=== PATIENT | male | born 1945 | race Caucasian/White ===

== ENCOUNTER 2017-06-28 14:12 | Emergency (ER) | payer MEDICARE ==
[~2017-06-28 14:12] MED LIST: ALBUTERAL SULFATE IH; ASPI-1181 PO; ATOR10TA69 PO; CETI10TA57 PO; CITA40TA6 PO; CLOP75TA14 PO; COD30 PO; CYAN100010 PO; FLUT16H NASAL; FLUT1DIS3 IH; GLIP10TA9 PO; HC2530O RC; METF10004 PO; METO-408 PO; PANT40TA25 PO; POLY17PO3 PO; PREG75 PO; PSYL0.4C PO; TAMS0.4C32 PO; TERB30CR22 TP; TRIA15OI6 TP
[2017-06-28 15:15] LABS: BASOPHILS % (AUTO) 0.3 % (0.0-5.0); EOSINOPHILS % (AUTO) 0.5 % (0.0-8.0); HEMATOCRIT 42.5 % (42-54); MEAN CORPUSCULAR HEMOGLOBIN 33.4 pg (27.0-33.0); MEAN CORPUSCULAR HGB CONC 35.9 g/dL (32.0-36.0); MONOCYTES % (AUTO) 6.1 % (3.0-13.0); NEUTROPHILS % (AUTO) 72.1 % (40.0-77.0); NUCLEATED RED BLOOD CELLS 0.1 % (0.0-0.19); PLATELET COUNT (AUTO) 101 K/uL (130-400); RED BLOOD CELL COUNT(AUTO) 4.57 MIL/uL (4.50-6.20); RED CELL DISTRIBUTION WIDTH 13.7 % (11.0-15.5); WHITE BLOOD COUNT (AUTO) 7.6 K/uL (4.8-10.8)
[2017-06-28 15:33] LABS: APPEARANCE,URINE Clear (CLEAR); BILIRUBIN,URINE Negative (NEGATIVE); COLOR,URINE Yellow (YELLOW); GLUCOSE, URINE (UA) >=1000 mg/dL (NEGATIVE); KETONES,URINE Negative (NEGATIVE); LEUKOCYTE ESTERASE ,URINE Negative (NEGATIVE); NITRATE,URINE Negative (NEGATIVE); OCCULT BLOOD,URINE Nonhemolyzed Trace (NEGATIVE); PH,URINE 5.5 (5.0-8.0); PROTEIN,URINE Negative (NEGATIVE); UROBILINOGEN,URINE 0.2 mg/dL (0.2-1.0)
[2017-06-28 15:41] LABS: CREATININE 1.3 mg/dL (0.5-1.5); POTASSIUM 4.4 mmol/L (3.5-5.1)
[2017-06-28 15:45] LABS: ALBUMIN 3.4 g/dL (3.5-5.0); BILIRUBIN,TOTAL 0.6 mg/dL (0.2-1.0); TOTAL PROTEIN, SERUM 6.7 g/dL (6.0-8.3)
[2017-06-28 15:55] LABS: BACTERIA,URINE None Seen /HPF (None Seen); RBC,URINE 0-1 /HPF (0-1); SQUAMOUS EPITHELIAL CELL,UR None Seen /LPF (0-2); WBC,URINE None Seen /HPF (0-1)
[2017-06-28] MEDS ORDERED: SODIUM CHLORIDE 0.9% 500ML 500 ML IV ONE (17:19)
[2017-06-28] MEDS ORDERED: INSULIN HUMULIN R 100 UNIT/ML 3ML ONE (17:20)
== END 2017-06-28 17:55 | disposition home or self-care (01) ==
LOC: EDH 14:12
DX: E11.65 Type 2 diabetes mellitus with hyperglycemia (principal); E78.5 Hyperlipidemia, unspecified; I10 Essential (primary) hypertension; I25.10 Atherosclerotic heart disease of native coronary artery without angina pectoris; Z95.1 Presence of aortocoronary bypass graft; Z88.6 Allergy status to analgesic agent
CPT/HCPCS: 36415; 80053; 81001; 82550; 84484; 85025; 93005; 96374; 99285; J1815; J7040

== ENCOUNTER 2018-10-11 05:45 | Day surgery (SDC) | payer OTHER ==
[2018-10-11] VITALS (9 sets, daily range): BP systolic 78–140; BP diastolic 47–81
[~2018-10-11] VITALS: Ht 182.9 cm; Wt 114.3 kg
[~2018-10-11 05:45] MED LIST changes: +ALBU0.63 IH; +BUDE8.435 NS; -CETI10TA57 PO; -CLOP75TA14 PO; +DULA1.5P SQ; -FLUT16H NASAL; -FLUT1DIS3 IH; +GLUC100019 PO; -HC2530O RC; +IPRA42SP NS; +LATA7.5D OU; +LORA10TA45 PO; +MELA1TAB21 PO; +METF-446 PO; -METF10004 PO; +MULT1CAP32 PO; -POLY17PO3 PO; +PROCTOCM PR; -PSYL0.4C PO; -TAMS0.4C32 PO; -TERB30CR22 TP; -TRIA15OI6 TP; +[UNRECOGNIZED DRUG - OTHER] PO
[2018-10-11] MEDS ORDERED: SODIUM CHLORIDE 0.9% 1000ML 1,000 ML IV ONE (05:52)
[2018-10-11] MEDS ORDERED: OMEG-116 PO (07:02)
[2018-10-11] MEDS ORDERED: PHENYLEPHRINE HCL 10 MG/ML 1ML VIAL IV ONE (07:50)
[2018-10-11] MEDS ORDERED: SODIUM CHLORIDE 0.9% 10 ML VIAL ONE (07:50)
[2018-10-11] MEDS ORDERED: PROPOFOL 10 MG/ML 20ML VIAL IV ONE (07:53)
== END 2018-10-11 08:50 | disposition home or self-care (01) ==
LOC: DAH 05:45
PROVIDERS: ATTEND Internal Medicine
DX: Z12.11 Encounter for screening for malignant neoplasm of colon (principal); K63.5 Polyp of colon; K29.50 Unspecified chronic gastritis without bleeding; K31.9 Disease of stomach and duodenum, unspecified; Z86.010 Personal history of colon polyps; E11.9 Type 2 diabetes mellitus without complications; I10 Essential (primary) hypertension; E78.5 Hyperlipidemia, unspecified; I25.10 Atherosclerotic heart disease of native coronary artery without angina pectoris; J45.909 Unspecified asthma, uncomplicated; I21.3 ST elevation (STEMI) myocardial infarction of unspecified site; M19.90 Unspecified osteoarthritis, unspecified site; Z95.1 Presence of aortocoronary bypass graft; Z98.890 Other specified postprocedural states; Z79.899 Other long term (current) drug therapy; Z79.84 Long term (current) use of oral hypoglycemic drugs; Z68.32 Body mass index [BMI] 32.0-32.9, adult; Z85.828 Personal history of other malignant neoplasm of skin; K64.0 First degree hemorrhoids; K57.30 Diverticulosis of large intestine without perforation or abscess without bleeding
CPT/HCPCS: 36415; 43239; 45380; 82784; 82948 ×2; 83516 ×4; 86140; 93005; A4606; J2370; J2704; J7030

== ENCOUNTER → 2020-01-23 | Outpatient (CLI) | payer OTHER ==
[~2020-01-23] MED LIST changes: -ASPI-1181 PO; +ASPI-1443 PO; +OMEG-116 PO
== END | disposition home or self-care (01) ==
LOC: SHCH 10:00
PROVIDERS: ATTEND Internal Medicine Cardiovascular Disease
DX: R01.1 Cardiac murmur, unspecified (principal); R09.89 Other specified symptoms and signs involving the circulatory and respiratory systems
CPT/HCPCS: 93306; 93880

== ENCOUNTER 2020-03-11 16:25 | Emergency (ER) | payer OTHER, MEDICARE ==
[~2020-03-11 16:25] MED LIST changes: -PANT40TA25 PO; +PANT40TA54 PO
[2020-03-11] MEDS ORDERED: ONDANSETRON HCL 4 MG/2 ML VIAL ONE (17:08)
[2020-03-11] MEDS ORDERED: MORPHINE SULFATE 2 MG/ML 1ML SYG ONE (17:09)
[2020-03-11] MEDS ORDERED: LIDOCAINE 5% TOPICAL PATCH TP ONE (18:42)
== END 2020-03-11 21:35 | disposition home or self-care (01) ==
LOC: EDH 16:25
DX: S42.214A Unspecified nondisplaced fracture of surgical neck of right humerus, initial encounter for closed fracture (principal); M25.562 Pain in left knee; M25.561 Pain in right knee; I25.10 Atherosclerotic heart disease of native coronary artery without angina pectoris; E11.9 Type 2 diabetes mellitus without complications; E78.5 Hyperlipidemia, unspecified; I10 Essential (primary) hypertension; Z87.891 Personal history of nicotine dependence; Z88.5 Allergy status to narcotic agent; Z88.6 Allergy status to analgesic agent; W18.39XA Other fall on same level, initial encounter; Y93.01 Activity, walking, marching and hiking; Y92.89 Other specified places as the place of occurrence of the external cause; Y99.8 Other external cause status
CPT/HCPCS: 29105; 70450; 72125; 72170; 73060; 73090; 73562 ×2; 96374; 96375; 99285; J2405; 29505

== ENCOUNTER 2020-06-02 21:05 | Inpatient (IN) | payer MEDICARE, OTHER ==
[~2020-06-02] VITALS: Ht 188 cm; Wt 99.4 kg
[~2020-06-02 21:05] MED LIST changes: +CITA-108 PO; -CITA40TA6 PO
[2020-06-02] MEDS ORDERED: ONDANSETRON 4MG INJ ONE (21:39)
[2020-06-02] MEDS ORDERED: HYDROCODONE/ACETAMINOPHEN 10/325 MG TAB ONE (21:40)
[2020-06-02 21:45] LABS: BASOPHILS % (AUTO) 0.2 % (0.0-5.0); EOSINOPHILS % (AUTO) 0.8 % (0.0-8.0); HEMATOCRIT 39.2 % (42-54); MEAN CORPUSCULAR HEMOGLOBIN 29.7 pg (27.0-33.0); MEAN CORPUSCULAR HGB CONC 34.7 g/dL (32.0-36.0); MEAN CORPUSCULAR VOLUME 85.6 fL (79-99); MONOCYTES % (AUTO) 8.8 % (3.0-13.0); NEUTROPHILS % (AUTO) 58.7 % (40.0-77.0); PLATELET COUNT (AUTO) 73 K/uL (130-400); RED BLOOD CELL COUNT(AUTO) 4.58 MIL/uL (4.50-6.20); WHITE BLOOD COUNT (AUTO) 6.3 K/uL (4.8-10.8)
[2020-06-02 21:54] LABS: INR 0.98 (0.85-1.15); PROTHROMBIN TIME 10.5 SEC (9.6-11.6)
[2020-06-02 21:55] LABS: PARTIAL THROMBOPLASTIN TIME 24.5 SEC (26.3-35.5)
[2020-06-02 22:04] LABS: B-TYPE NATRIURETIC PEPTIDE 14 pg/mL (0-100)
[2020-06-02 22:05] LABS: CREATININE 1.5 mg/dL (0.5-1.5)
[2020-06-02 22:09] LABS: ALBUMIN 3.8 g/dL (3.5-5.0); BILIRUBIN,TOTAL 0.3 mg/dL (0.2-1.0); TOTAL PROTEIN, SERUM 6.7 g/dL (6.0-8.3)
[2020-06-02 23:07] LABS: APPEARANCE,URINE Clear (CLEAR); BILIRUBIN,URINE Negative (NEGATIVE); COLOR,URINE Yellow (YELLOW); GLUCOSE, URINE (UA) Negative (NEGATIVE); KETONES,URINE Negative (NEGATIVE); LEUKOCYTE ESTERASE ,URINE Negative (NEGATIVE); NITRATE,URINE Negative (NEGATIVE); OCCULT BLOOD,URINE Negative (NEGATIVE); PROTEIN,URINE Negative (NEGATIVE); UROBILINOGEN,URINE 0.2 mg/dL (0.2-1.0)
[2020-06-02] MEDS ORDERED: LACTULOSE 20 GM/30 ML UDCUP PO PRN (23:15)
[2020-06-02] MEDS ORDERED: ONDANSETRON 4MG INJ IV PRN (23:15)
[2020-06-02] MEDS ORDERED: KETOROLAC 15MG/ML VIAL (15MG/ML) IV PRN (23:15)
[2020-06-02] MEDS ORDERED: ACETAMINOPHEN 325 MG TAB PO PRN ×2 (23:15)
[2020-06-03] MEDS ORDERED: KETOROLAC 15MG/ML VIAL (15MG/ML) ONE (05:52)
[2020-06-03 06:47] LABS: BASOPHILS % (AUTO) 0.2 % (0.0-5.0); EOSINOPHILS % (AUTO) 1.2 % (0.0-8.0); HEMATOCRIT 37.9 % (42-54); LYMPHOCYTES % (AUTO) 34.5 % (21.0-51.0); MEAN CORPUSCULAR HEMOGLOBIN 29.4 pg (27.0-33.0); MEAN CORPUSCULAR HGB CONC 34.3 g/dL (32.0-36.0); MEAN CORPUSCULAR VOLUME 85.7 fL (79-99); MONOCYTES % (AUTO) 10.4 % (3.0-13.0); NEUTROPHILS % (AUTO) 53.4 % (40.0-77.0); PLATELET COUNT (AUTO) 69 K/uL (130-400); RED BLOOD CELL COUNT(AUTO) 4.42 MIL/uL (4.50-6.20); RED CELL DISTRIBUTION WIDTH 13.8 % (11.0-15.5); WHITE BLOOD COUNT (AUTO) 5.8 K/uL (4.8-10.8)
[2020-06-03 07:03] LABS: CREATININE 1.3 mg/dL (0.5-1.5)
[2020-06-03] MEDS: INSULIN HUMULIN R 100 UNIT/ML 3ML SQ SCH ×4 (07:30→21:00)
[2020-06-03] MEDS ORDERED: FAMOTIDINE 20MG TAB ONE (08:25)
[2020-06-03] MEDS: FAMOTIDINE 20MG TAB PO SCH ×2 (09:00→21:15)
[2020-06-03] MEDS ORDERED: COMPOUND IV REFRIGERATED 1 EACH IVSOLN MISC PRN (16:15)
[2020-06-03 17:06] VITALS: BP_SYST 103; BP_SYST 152; BP_DIAS 66; BP_DIAS 79
[2020-06-03] MEDS ORDERED: KETOROLAC 30MG VIAL (30MG/ML) ONE (17:39)
[2020-06-03] MEDS ORDERED: ASPI-1026 PO (18:31)
[2020-06-03] MEDS ORDERED: AZEL23SP NS (18:31)
[2020-06-03] MEDS ORDERED: CETI-89 PO (18:31)
[2020-06-03] MEDS ORDERED: ATOR10 PO (18:31)
[2020-06-03 20:12] VITALS: BP 141/81
[2020-06-04] VITALS (15 sets, daily range): BP systolic 99–160; BP diastolic 52–90
[2020-06-04] MEDS: INSULIN HUMULIN R 100 UNIT/ML 3ML SQ SCH ×4 (05:58→21:25)
[2020-06-04] MEDS ORDERED: MEPERIDINE-PF 25 MG/ML SYG ONE ×2 (08:45→10:00)
[2020-06-04] MEDS ORDERED: LIDOCAINE HCL 1% 20 ML VIAL ONE (08:45)
[2020-06-04] MEDS ORDERED: MIDAZOLAM HCL 1 MG/ML 2ML VIAL ONE ×2 (08:46→10:00)
[2020-06-04] MEDS: ASPIRIN 81MG CHEW TAB PO SCH (09:00)
[2020-06-04] MEDS ORDERED: CLOPIDOGREL 75MG TAB PO SCH (09:00)
[2020-06-04 09:29] LABS: CREATININE 1.3 mg/dL (0.5-1.5); MAGNESIUM 1.4 mg/dL (1.80-2.40); POTASSIUM 4.7 mmol/L (3.5-5.1)
[2020-06-04] MEDS ORDERED: LIDOCAINE HCL 1% MDV 50ML VIAL ONE (10:02)
[2020-06-04] MEDS ORDERED: BUPIVACAINE/PF 0.25% 50ML VIAL IJ ONE (10:03)
[2020-06-04] MEDS ORDERED: NON-FORMULARY MEDICATION 1 EACH (Albuterol Sulfate 0.63 MG) IH SCH (14:00)
[2020-06-04] MEDS: FAMOTIDINE 20MG TAB PO SCH ×2 (14:27→21:21)
[2020-06-04] MEDS: ATORVASTATIN 20 MG TABLET PO SCH (14:27)
[2020-06-04] MEDS: ACETAMINOPHEN WITH CODEINE 1 TAB TAB PO PRN (14:35)
[2020-06-04] MEDS ORDERED: **HM**MELATONIN 10MG PO SCH (21:00)
[2020-06-04] MEDS ORDERED: LATANOPROST 2.5 ML DROPS OU SCH (21:00)
[2020-06-04] MEDS: PANTOPRAZOLE 40 MG TAB DR PO SCH (21:21)
[2020-06-04] MEDS: IPRATROPIUM BROMIDE NASAL SCH (21:22)
[2020-06-05] MEDS: ACETAMINOPHEN WITH CODEINE 1 TAB TAB PO PRN (01:51)
[2020-06-05 03:40] VITALS: BP_SYST 162; BP_SYST 89; BP_DIAS 53; BP_DIAS 80
[2020-06-05 04:34] VITALS: BP 155/93
[2020-06-05 04:35] VITALS: BP 174/97
[2020-06-05 04:38] LABS: BASOPHILS % (AUTO) 0.2 % (0.0-5.0); EOSINOPHILS % (AUTO) 1.2 % (0.0-8.0); HEMATOCRIT 36.9 % (42-54); LYMPHOCYTES % (AUTO) 33.3 % (21.0-51.0); MEAN CORPUSCULAR HEMOGLOBIN 28.9 pg (27.0-33.0); MEAN CORPUSCULAR HGB CONC 33.9 g/dL (32.0-36.0); MEAN CORPUSCULAR VOLUME 85.4 fL (79-99); MONOCYTES % (AUTO) 10.4 % (3.0-13.0); NEUTROPHILS % (AUTO) 54.4 % (40.0-77.0); PLATELET COUNT (AUTO) 58 K/uL (130-400); RED BLOOD CELL COUNT(AUTO) 4.32 MIL/uL (4.50-6.20); RED CELL DISTRIBUTION WIDTH 13.4 % (11.0-15.5); WHITE BLOOD COUNT (AUTO) 4.2 K/uL (4.8-10.8)
[2020-06-05 04:46] LABS: CREATININE 1.2 mg/dL (0.5-1.5); MAGNESIUM 1.4 mg/dL (1.80-2.40); POTASSIUM 4.6 mmol/L (3.5-5.1)
[2020-06-05] MEDS: INSULIN HUMULIN R 100 UNIT/ML 3ML SQ SCH ×2 (07:30→11:30)
[2020-06-05 07:56] VITALS: BP 157/74
[2020-06-05] MEDS ORDERED: MAGNESIUM 2GM PREMIX 50ML 50 ML IV PRN (08:30)
[2020-06-05] MEDS ORDERED: BUDESONIDE NASAL SCH (09:00)
[2020-06-05] MEDS: IPRATROPIUM BROMIDE NASAL SCH (09:00)
[2020-06-05] MEDS: FAMOTIDINE 20MG TAB PO SCH (09:40)
[2020-06-05] MEDS: PANTOPRAZOLE 40 MG TAB DR PO SCH (09:40)
[2020-06-05] MEDS: ASPIRIN 81MG CHEW TAB PO SCH (09:40)
[2020-06-05] MEDS: ATORVASTATIN 20 MG TABLET PO SCH (09:40)
[2020-06-05 11:32] VITALS: BP 163/89
[2020-06-05] MEDS ORDERED: PHARMACY COMMUNICATION MISC SCH (14:30)
[2020-08-12] MEDS ORDERED: METO25TA6 PO (14:35)
[2020-08-12] MEDS ORDERED: Glipizide PO (14:35)
[2020-08-12] MEDS ORDERED: NITR0.4T50 SL (14:35)
== END 2020-06-05 17:45 | disposition home or self-care (01) | DRG 274 ==
LOC: EDH 21:05 → EDHIP 23:04 → OBSVTOIN 23:04 → 3CH 06-03 14:58
PROVIDERS: ADMIT Family Medicine; ATTEND Family Medicine
PROC: 4A023FZ Measurement of Cardiac Rhythm, Percutaneous Approach (ICD-10-PCS; principal; 2020-06-04)
PROC: 4A0234Z Measurement of Cardiac Electrical Activity, Percutaneous Approach (ICD-10-PCS; 2020-06-04)
PROC: 0JH602Z Insertion of Monitoring Device into Chest Subcutaneous Tissue and Fascia, Open Approach (ICD-10-PCS; 2020-06-04)
DX: I95.1 Orthostatic hypotension (principal); E87.2 Acidosis; I13.0 Hypertensive heart and chronic kidney disease with heart failure and stage 1 through stage 4 chronic kidney disease, or unspecified chronic kidney disease; I50.42 Chronic combined systolic (congestive) and diastolic (congestive) heart failure; Z20.828 Contact with and (suspected) exposure to other viral communicable diseases; Z88.8 Allergy status to other drugs, medicaments and biological substances; Z88.2 Allergy status to sulfonamides; I25.10 Atherosclerotic heart disease of native coronary artery without angina pectoris; Z95.1 Presence of aortocoronary bypass graft; D69.6 Thrombocytopenia, unspecified; Z95.5 Presence of coronary angioplasty implant and graft; Z82.49 Family history of ischemic heart disease and other diseases of the circulatory system; Z83.3 Family history of diabetes mellitus; M25.562 Pain in left knee; M25.511 Pain in right shoulder; N18.30 Chronic kidney disease, stage 3 unspecified; E11.22 Type 2 diabetes mellitus with diabetic chronic kidney disease; I25.2 Old myocardial infarction; J32.0 Chronic maxillary sinusitis; Z86.73 Personal history of transient ischemic attack (TIA), and cerebral infarction without residual deficits; E78.5 Hyperlipidemia, unspecified; E11.40 Type 2 diabetes mellitus with diabetic neuropathy, unspecified
CPT/HCPCS: 33285; 36415; 70450; 70486; 71045; 72125; 73030; 73562; 80048; 80053; 81003; 82550; 82948; 83605; 83735; 83880; 84484; 85025; 85610; 85730; 87426; 93005; 93620; 95816; 99156; 99157; 99291; C1730; C1894; G0378; J1644; J1815; J1885; J2175; J2250; J2405; J3490; U0003

== ENCOUNTER 2020-08-13 05:54 | Day surgery (SDC) | payer OTHER ==
[2020-08-12 11:56] LABS: BASOPHILS % (AUTO) 0.4 % (0.0-5.0); EOSINOPHILS % (AUTO) 2.8 % (0.0-8.0); HEMATOCRIT 41.3 % (42-54); LYMPHOCYTES % (AUTO) 31.5 % (21.0-51.0); MEAN CORPUSCULAR HEMOGLOBIN 29.9 pg (27.0-33.0); MEAN CORPUSCULAR HGB CONC 34.1 g/dL (32.0-36.0); MEAN CORPUSCULAR VOLUME 87.5 fL (79-99); MONOCYTES % (AUTO) 10.7 % (3.0-13.0); NEUTROPHILS % (AUTO) 54.2 % (40.0-77.0); PLATELET COUNT (AUTO) 108 K/uL (130-400); RED BLOOD CELL COUNT(AUTO) 4.72 MIL/uL (4.50-6.20); RED CELL DISTRIBUTION WIDTH 13.9 % (11.0-15.5)
[2020-08-12 12:01] LABS: CREATININE 1.3 mg/dL (0.5-1.5); POTASSIUM 4.3 mmol/L (3.5-5.1)
[2020-08-12 12:04] LABS: APPEARANCE,URINE Clear (CLEAR); BILIRUBIN,URINE Negative (NEGATIVE); COLOR,URINE Yellow (YELLOW); GLUCOSE, URINE (UA) Negative (NEGATIVE); KETONES,URINE Negative (NEGATIVE); LEUKOCYTE ESTERASE ,URINE Negative (NEGATIVE); NITRATE,URINE Negative (NEGATIVE); OCCULT BLOOD,URINE Negative (NEGATIVE); PROTEIN,URINE Negative (NEGATIVE); UROBILINOGEN,URINE 0.2 mg/dL (0.2-1.0)
[2020-08-12 12:17] LABS: INR 1.05 (0.85-1.15); PROTHROMBIN TIME 11.4 SEC (9.6-11.6)
[2020-08-12 12:18] LABS: PARTIAL THROMBOPLASTIN TIME 26.9 SEC (26.3-35.5)
[2020-08-12 13:48] VITALS: BP 128/77
[~2020-08-13] VITALS: Ht 182.9 cm; Wt 101.9 kg
[2020-08-13] VITALS (12 sets, daily range): BP systolic 107–149; BP diastolic 52–82
[~2020-08-13 05:54] MED LIST changes: +ASPI-1026 PO; -ASPI-1443 PO; +ATOR10 PO; -ATOR10TA69 PO; +AZEL23SP NS; +CETI-89 PO; -CITA-108 PO; +CITA40TA6 PO; -DULA1.5P SQ; -GLIP10TA9 PO; -GLUC100019 PO; +Glipizide PO; -LORA10TA45 PO; -MELA1TAB21 PO; -METO-408 PO; +METO25TA6 PO; +NITR0.4T50 SL; -OMEG-116 PO; -PROCTOCM PR; -[UNRECOGNIZED DRUG - OTHER] PO
[2020-08-13] MEDS ORDERED: SODIUM CHLORIDE 0.9% 1000ML 1,000 ML IV ONE (06:15)
[2020-08-13] MEDS ORDERED: MEPERIDINE-PF 25 MG/ML SYG ONE ×2 (07:30→08:07)
[2020-08-13] MEDS ORDERED: MIDAZOLAM HCL 1 MG/ML 2ML VIAL ONE ×2 (07:30→08:07)
[2020-08-13] MEDS ORDERED: IOHEXOL 350 MG/ML 100ML INFUS..BTL IV ONE ×2 (07:33→07:54)
[2020-08-13] MEDS ORDERED: SODIUM BICARB 50MEQ 50ML VIAL 50 ML ONE (07:33)
[2020-08-13] MEDS ORDERED: IOHEXOL-350 50ML VIAL IV ONE (07:33)
[2020-08-13] MEDS ORDERED: LIDOCAINE HCL 2% 20ML ONE (07:33)
[2020-08-13] MEDS ORDERED: HEPARIN SODIUM 1000UNIT/ML 10ML VIAL ONE (07:54)
[2020-08-13] MEDS ORDERED: SODIUM CHLORIDE 0.9% 1000ML 1,000 ML IV SCH ×2 (08:00→09:00)
[2020-08-13] MEDS ORDERED: CLOPIDOGREL BISULFATE 300 MG TAB ONE (08:51)
[2020-08-13] MEDS ORDERED: ASPIRIN 325MG EC TAB 325 MG TABLET.DR PO ONE (08:51)
[2020-08-13] MEDS ORDERED: ONDANSETRON HCL 4 MG/2 ML VIAL IVP PRN (09:00)
[2020-08-13] MEDS ORDERED: FAMOTIDINE/PF 20 MG/2 ML VIAL IV ONE (10:30)
== END 2020-08-13 15:00 | disposition home or self-care (01) ==
LOC: DAH 05:54
PROVIDERS: ATTEND Internal Medicine Cardiovascular Disease
DX: I25.119 Atherosclerotic heart disease of native coronary artery with unspecified angina pectoris (principal); I25.82 Chronic total occlusion of coronary artery; T82.855A Stenosis of coronary artery stent, initial encounter; I13.0 Hypertensive heart and chronic kidney disease with heart failure and stage 1 through stage 4 chronic kidney disease, or unspecified chronic kidney disease; E11.22 Type 2 diabetes mellitus with diabetic chronic kidney disease; I50.32 Chronic diastolic (congestive) heart failure; N18.30 Chronic kidney disease, stage 3 unspecified; E78.5 Hyperlipidemia, unspecified; D69.6 Thrombocytopenia, unspecified; I87.2 Venous insufficiency (chronic) (peripheral); I45.10 Unspecified right bundle-branch block; Z95.1 Presence of aortocoronary bypass graft; Z79.84 Long term (current) use of oral hypoglycemic drugs; Z79.899 Other long term (current) drug therapy; Z79.01 Long term (current) use of anticoagulants; Z79.82 Long term (current) use of aspirin; Z83.3 Family history of diabetes mellitus; Z82.49 Family history of ischemic heart disease and other diseases of the circulatory system; Z88.8 Allergy status to other drugs, medicaments and biological substances; Z88.1 Allergy status to other antibiotic agents; Y83.8 Other surgical procedures as the cause of abnormal reaction of the patient, or of later complication, without mention of misadventure at the time of the procedure
CPT/HCPCS: 36415; 71045; 80048; 81003; 82948; 85025; 85610; 85730; 92920; 93005; 93459; A4215; A4216; A4221; A4222; A4223 ×3; A4606; A4663; C1725; C1760; C1769 ×2; C1887 ×5; C1894; J1644 ×2; J2175 ×2; J2250 ×2; J3490 ×3; J7030; Q9965 ×2; Q9967 ×3; 96360; 96361; 99156; 99157

== ENCOUNTER → 2020-11-05 | Outpatient (CLI) | payer OTHER ==
[~2020-11-05] MED LIST changes: -ASPI-1026 PO
[2020-11-05 13:40] LABS: CREATININE 1.3 mg/dL (0.5-1.5); POTASSIUM 4.6 mmol/L (3.5-5.1)
== END | disposition home or self-care (01) ==
LOC: LAB 12:02
PROVIDERS: ATTEND Family Medicine
DX: H49.20 Sixth [abducent] nerve palsy, unspecified eye (principal)
CPT/HCPCS: 36415; 80048

== ENCOUNTER → 2020-11-06 | Outpatient (CLI) | payer OTHER ==
[~2020-11-06] MED LIST changes: +GADOTERATE MEGLUMINE 10 MMOL/20 ML VIAL IV ONE
== END | disposition home or self-care (01) ==
LOC: RAH 08:27
PROVIDERS: ATTEND Family Medicine
DX: H49.20 Sixth [abducent] nerve palsy, unspecified eye (principal); G31.89 Other specified degenerative diseases of nervous system
CPT/HCPCS: 70553; A9575

== ENCOUNTER 2021-07-11 06:07 | Day surgery (SDC) | payer OTHER ==
[2021-07-09 14:18] LABS: CREATININE 1.1 mg/dL (0.5-1.5); POTASSIUM 3.1 mmol/L (3.5-5.1)
[2021-07-09 14:21] LABS: INR 1.06 (0.85-1.15); PROTHROMBIN TIME 11.5 SEC (9.6-11.6)
[2021-07-09 14:22] LABS: PARTIAL THROMBOPLASTIN TIME 28.3 SEC (26.3-35.5)
[2021-07-09 16:26] LABS: BASOPHILS % (AUTO) 0.2 % (0.0-5.0); EOSINOPHILS % (AUTO) 1.4 % (0.0-8.0); HEMATOCRIT 34.1 % (42-54); LYMPHOCYTES % (AUTO) 25.1 % (21.0-51.0); MEAN CORPUSCULAR HEMOGLOBIN 26.7 pg (27.0-33.0); MEAN CORPUSCULAR HGB CONC 32.8 g/dL (32.0-36.0); MEAN CORPUSCULAR VOLUME 81.2 fL (79-99); MONOCYTES % (AUTO) 8.3 % (3.0-13.0); NEUTROPHILS % (AUTO) 64.1 % (40.0-77.0); PLATELET COUNT (AUTO) 96 K/uL (130-400); RED CELL DISTRIBUTION WIDTH 15.3 % (11.0-15.5); WHITE BLOOD COUNT (AUTO) 4.3 K/uL (4.8-10.8)
[2021-07-10 09:11] VITALS: BP 138/73
[2021-07-11] VITALS (11 sets, daily range): BP systolic 145–165; BP diastolic 71–94
[~2021-07-11] VITALS: Ht 182.9 cm; Wt 95.4 kg
[~2021-07-11 06:07] MED LIST changes: +0.9% NACL 500ML IV.SOLN 500 ML IV SCH; +AEC81 PO; -ALBU0.63 IH; -ALBUTERAL SULFATE IH; +BENZ-39 PO; +BIOT800T PO; -BUDE8.435 NS; -CETI-89 PO; +CITA-108 PO; -CITA40TA6 PO; +CLOP75TA32 PO; -COD30 PO; +COMPAZINE PO; -CYAN100010 PO; +FLUD0.1T2 PO; -GADOTERATE MEGLUMINE 10 MMOL/20 ML VIAL IV ONE; -Glipizide PO; +INSREG SQ; -LATA7.5D OU; +METH-811 PO; -METO25TA6 PO; +MONT-39 PO; -MULT1CAP32 PO; -NITR0.4T50 SL; +PIND10TA2 PO
[2021-07-11] MEDS ORDERED: 0.9%NACL 1000ML 1,000 ML IV ONE (06:22)
[2021-07-11] MEDS ORDERED: BUPIVACAINE/PF 0.25% 30ML VIAL IJ ONE (07:25)
[2021-07-11] MEDS ORDERED: CEFAZOLIN SODIUM 1 GM VIAL ONE ×3 (07:25→11:54)
[2021-07-11] MEDS ORDERED: LIDOCAINE HCL 1% MDV 50ML VIAL ONE (07:26)
[2021-07-11] MEDS ORDERED: MIDAZOLAM HCL 1 MG/ML 2ML VIAL ONE ×3 (07:36→08:16)
[2021-07-11] MEDS ORDERED: MEPERIDINE-PF 50 MG/ML SYG ONE ×2 (07:36→08:16)
[2021-07-11] MEDS ORDERED: THROMBIN-JMI 5000 UNIT/VIAL TP ONE (08:13)
[2021-07-11] MEDS ORDERED: ACETAMINOPHEN 325 MG TAB PO PRN ×2 (09:30)
[2021-07-11] MEDS ORDERED: DEXTROSE 50%-WATER 50 ML DISP.SYRIN IV PRN (09:30)
[2021-07-11] MEDS ORDERED: INSULIN HUMULIN R 100 UNIT/ML 3ML SQ SCH (11:30)
[2021-07-11] MEDS ORDERED: ACETAMINOPHEN 325 MG TAB ONE (13:42)
[2021-07-11] MEDS ORDERED: CEFAZOLIN SODIUM 1 GM VIAL IVP ONE (15:00)
== END 2021-07-11 16:05 | disposition home or self-care (01) ==
LOC: DAH 06:07 → UNDOADMOB 06:07 → DAHIP 06:07 → DAH 16:05
PROVIDERS: ATTEND Internal Medicine Cardiovascular Disease
DX: I49.5 Sick sinus syndrome (principal); Z45.09 Encounter for adjustment and management of other cardiac device; R55 Syncope and collapse; E11.22 Type 2 diabetes mellitus with diabetic chronic kidney disease; I12.9 Hypertensive chronic kidney disease with stage 1 through stage 4 chronic kidney disease, or unspecified chronic kidney disease; N18.30 Chronic kidney disease, stage 3 unspecified; I87.2 Venous insufficiency (chronic) (peripheral); E78.5 Hyperlipidemia, unspecified; E66.9 Obesity, unspecified; E11.21 Type 2 diabetes mellitus with diabetic nephropathy; E11.42 Type 2 diabetes mellitus with diabetic polyneuropathy; Z79.01 Long term (current) use of anticoagulants; Z88.1 Allergy status to other antibiotic agents; Z88.8 Allergy status to other drugs, medicaments and biological substances; Z83.3 Family history of diabetes mellitus; Z82.49 Family history of ischemic heart disease and other diseases of the circulatory system; Z98.890 Other specified postprocedural states; Z95.1 Presence of aortocoronary bypass graft; Z79.899 Other long term (current) drug therapy; Z79.84 Long term (current) use of oral hypoglycemic drugs; Z79.82 Long term (current) use of aspirin; Z68.28 Body mass index [BMI] 28.0-28.9, adult
CPT/HCPCS: 33208; 33286; 36415; 71045; 80048; 82948 ×2; 85025; 85610; 85730; A4215; A4216; A4221; A4222; A4223 ×3; A4606; A4663; C1785; C1894; C1898 ×2; J0690 ×3; J2175 ×2; J2250 ×3; J3490 ×3; J7030 ×2; 93005; 99156; 99157; J7040

== ENCOUNTER 2021-08-10 09:06 | Emergency (ER) | payer OTHER ==
[~2021-08-10] VITALS: Ht 182.9 cm; Wt 90.7 kg
[~2021-08-10 09:06] MED LIST changes: -0.9% NACL 500ML IV.SOLN 500 ML IV SCH
[2021-08-10] MEDS ORDERED: MORPHINE 4 MG SYG IVP ONE (09:30)
[2021-08-10] MEDS ORDERED: ONDANSETRON 4MG INJ IVP ONE (09:30)
[2021-08-10 09:37] LABS: BASOPHILS % (AUTO) 0.2 % (0.0-5.0); EOSINOPHILS % (AUTO) 1.2 % (0.0-8.0); HEMATOCRIT 41.4 % (42-54); LYMPHOCYTES % (AUTO) 15.7 % (21.0-51.0); MEAN CORPUSCULAR HEMOGLOBIN 28.1 pg (27.0-33.0); MEAN CORPUSCULAR HGB CONC 33.1 g/dL (32.0-36.0); MONOCYTES % (AUTO) 12.8 % (3.0-13.0); NEUTROPHILS % (AUTO) 69.6 % (40.0-77.0); PLATELET COUNT (AUTO) 40 K/uL (130-400); RED BLOOD CELL COUNT(AUTO) 4.87 MIL/uL (4.50-6.20); RED CELL DISTRIBUTION WIDTH 16.4 % (11.0-15.5); WHITE BLOOD COUNT (AUTO) 5.9 K/uL (4.8-10.8)
[2021-08-10 10:05] LABS: ALBUMIN 3.4 g/dL (3.5-5.0); BILIRUBIN,TOTAL 0.6 mg/dL (0.2-1.0); POTASSIUM 3.7 mmol/L (3.5-5.1); TOTAL PROTEIN, SERUM 7.3 g/dL (6.0-8.3)
[2021-08-10] MEDS ORDERED: ACET1TAB25 PO (10:43)
[2021-08-10 11:08] VITALS: BP 124/76
== END 2021-08-10 11:20 | disposition home or self-care (01) ==
LOC: EDH 09:06
DX: S00.81XA Abrasion of other part of head, initial encounter (principal); S46.001A Unspecified injury of muscle(s) and tendon(s) of the rotator cuff of right shoulder, initial encounter; D69.6 Thrombocytopenia, unspecified; E11.9 Type 2 diabetes mellitus without complications; E78.00 Pure hypercholesterolemia, unspecified; I10 Essential (primary) hypertension; I25.10 Atherosclerotic heart disease of native coronary artery without angina pectoris; Z95.818 Presence of other cardiac implants and grafts; Z88.8 Allergy status to other drugs, medicaments and biological substances; Z88.2 Allergy status to sulfonamides; Z88.1 Allergy status to other antibiotic agents; Z79.899 Other long term (current) drug therapy; Z79.4 Long term (current) use of insulin; Z79.82 Long term (current) use of aspirin; Z79.84 Long term (current) use of oral hypoglycemic drugs; Z88.6 Allergy status to analgesic agent; W01.0XXA Fall on same level from slipping, tripping and stumbling without subsequent striking against object, initial encounter; Y93.89 Activity, other specified; Y92.89 Other specified places as the place of occurrence of the external cause; Y99.8 Other external cause status
CPT/HCPCS: 36415; 70450; 71045; 72125; 73030; 73060; 80053; 84484; 85025; 93005; 96374; 96375; 99285; J2270; J2405

== ENCOUNTER 2022-07-06 12:57 | Inpatient (IN) | payer OTHER ==
[~2022-07-06] VITALS: Ht 182.9 cm; Wt 93.0 kg
[~2022-07-06 12:57] MED LIST changes: +ACET-2079 PO; +ALBU2.5V2 IH; +AMIT25TA9 PO; -AZEL23SP NS; -BIOT800T PO; +CETI10TA57 PO; +DORZ10DR19 OP; +DULERA IH; +EMPA25TA PO; +FERR-72 PO; -IPRA42SP NS; +LATA2.5D14 OP; +LISI20TA24 PO; +NITR0.4T50 SL; +ONDA-105 PO
[2022-07-06 13:51] LABS: HEMATOCRIT 42.7 % (42-54); MEAN CORPUSCULAR HEMOGLOBIN 30.4 pg (27.0-33.0); MEAN CORPUSCULAR HGB CONC 35.4 g/dL (32.0-36.0); MEAN CORPUSCULAR VOLUME 85.9 fL (79-99); PLATELET COUNT (AUTO) 71 K/uL (130-400); RED BLOOD CELL COUNT(AUTO) 4.97 MIL/uL (4.50-6.20); RED CELL DISTRIBUTION WIDTH 15.2 % (11.0-15.5); WHITE BLOOD COUNT (AUTO) 6.5 K/uL (4.8-10.8)
[2022-07-06] MEDS: 0.9%NACL 1000ML 1,000 ML IV SCH ×3 (13:56→15:32)
[2022-07-06 14:02] LABS: CREATININE 3.2 mg/dL (0.5-1.5); POTASSIUM 4.5 mmol/L (3.5-5.1)
[2022-07-06 14:10] LABS: ALBUMIN 3.3 g/dL (3.5-5.0); TOTAL PROTEIN, SERUM 7.2 g/dL (6.0-8.3)
[2022-07-06 14:45] LABS: BASOPHILS % (AUTO) 0.3 % (0.0-5.0); EOSINOPHILS % (AUTO) 0.9 % (0.0-8.0); LYMPHOCYTES % (AUTO) 29.1 % (21.0-51.0); MONOCYTES % (AUTO) 13.5 % (3.0-13.0); NEUTROPHILS % (AUTO) 55.6 % (40.0-77.0)
[2022-07-06] MEDS ORDERED: NOREPINEPHRIN 4MG/NS 250ML 250 ML IV SCH (16:30)
[2022-07-06] MEDS ORDERED: HYDROCORTISONE SOD SUCCINATE 100 MG/2 ML VIAL IV SCH (17:00)
[2022-07-06] MEDS ORDERED: 0.9%NACL 1000ML 1,000 ML IV SCH (17:00)
[2022-07-06] MEDS ORDERED: ZOSYN 3.375GM +NS 50ML IVPB ONE (17:00)
[2022-07-06] MEDS ORDERED: ACETAMINOPHEN WITH CODEINE 1 TAB TAB PO PRN (17:30)
[2022-07-06] MEDS ORDERED: KETOROLAC 15MG/ML VIAL (15MG/ML) IV ONE (17:30)
[2022-07-06] MEDS ORDERED: KETOROLAC 15MG/ML VIAL (15MG/ML) IV PRN (17:30)
[2022-07-06] MEDS: ACETAMINOPHEN WITH CODEINE 1 TAB TAB PO PRN (19:12)
[2022-07-06] MEDS ORDERED: MIDODRINE HCL 5 MG TABLET PO SCH (21:00)
[2022-07-06 23:41] LABS: APPEARANCE,URINE CLEAR (CLEAR); BILIRUBIN,URINE NEGATIVE (NEGATIVE); COLOR,URINE YELLOW (YELLOW); GLUCOSE, URINE (UA) NEGATIVE (NEGATIVE); KETONES,URINE NEGATIVE (NEGATIVE); LEUKOCYTE ESTERASE ,URINE NEGATIVE Leu/uL (NEGATIVE); NITRATE,URINE NEGATIVE (NEGATIVE); OCCULT BLOOD,URINE NEGATIVE (NEGATIVE); PROTEIN,URINE 10 mg/dL (NEGATIVE); UROBILINOGEN,URINE 0.2 mg/dL (0.2-1.0)
[2022-07-06 23:43] LABS: HYALINE CASTS, URINE 26-50 /LPF (0-1 /LPF); MUCUS,URINE RARE LPF (None Seen); RBC,URINE 0-1 /HPF (0-1); SQUAMOUS EPITHELIAL CELL,UR RARE /HPF (0-2)
[2022-07-06 23:44] LABS: CREATININE,URINE RANDOM 192 mg/dL (30-135); SODIUM,URINE RANDOM 21 mmol/l (40-220)
[2022-07-07 07:02] LABS: BASOPHILS % (AUTO) 0.2 % (0.0-5.0); HEMATOCRIT 39.9 % (42-54); LYMPHOCYTES % (AUTO) 31.4 % (21.0-51.0); MEAN CORPUSCULAR HEMOGLOBIN 30.1 pg (27.0-33.0); MEAN CORPUSCULAR HGB CONC 34.8 g/dL (32.0-36.0); MEAN CORPUSCULAR VOLUME 86.4 fL (79-99); MONOCYTES % (AUTO) 12.3 % (3.0-13.0); NEUTROPHILS % (AUTO) 54.7 % (40.0-77.0); PLATELET COUNT (AUTO) 51 K/uL (130-400); RED BLOOD CELL COUNT(AUTO) 4.62 MIL/uL (4.50-6.20); RED CELL DISTRIBUTION WIDTH 15.1 % (11.0-15.5); WHITE BLOOD COUNT (AUTO) 4.9 K/uL (4.8-10.8)
[2022-07-07 08:17] LABS: ALBUMIN 3.1 g/dL (3.5-5.0); CREATININE 2.3 mg/dL (0.5-1.5); MAGNESIUM 1.6 mg/dL (1.80-2.40); POTASSIUM 3.7 mmol/L (3.5-5.1); TOTAL PROTEIN, SERUM 6.9 g/dL (6.0-8.3)
[2022-07-07] MEDS: FLUDROCORTISONE ACETATE 0.1 MG TABLET PO SCH ×2 (09:00→21:18)
[2022-07-07] MEDS: MIDODRINE HCL 5 MG TABLET PO SCH ×4 (09:00→21:18)
[2022-07-07] MEDS: ZOSYN 3.375GM +NS 50ML IVPB SCH ×2 (09:03→21:16)
[2022-07-07] MEDS: 0.9%NACL 1000ML 1,000 ML IV SCH (10:40)
[2022-07-07 11:45] VITALS: BP 157/78
[2022-07-07] MEDS: ACETAMINOPHEN WITH CODEINE 1 TAB TAB PO PRN (12:44)
[2022-07-07 16:31] VITALS: BP 144/89
[2022-07-07 19:46] VITALS: BP 141/80
[2022-07-07 20:33] LABS: CREATININE 1.8 mg/dL (0.5-1.5); POTASSIUM 4.2 mmol/L (3.5-5.1)
[2022-07-07 20:37] LABS: MAGNESIUM 1.5 mg/dL (1.80-2.40); TOTAL PROTEIN, SERUM 6.6 g/dL (6.0-8.3)
[2022-07-07] MEDS ORDERED: ATORVASTATIN 10 MG TABLET PO SCH (21:00)
[2022-07-07] MEDS ORDERED: CITALOPRAM 20 MG TABLET PO SCH (21:00)
[2022-07-07] MEDS ORDERED: LATANOPROST 2.5 ML DROPS OP SCH (21:00)
[2022-07-07] MEDS ORDERED: FERROUS SULFATE 325 MG TABLET.DR PO SCH (21:00)
[2022-07-07] MEDS: DORZOLAMIDE HCL 2% 10ML DROPS OP SCH (21:17)
[2022-07-07] MEDS: PREGABALIN 75 MG CAPSULE PO SCH (21:17)
[2022-07-07] MEDS: PANTOPRAZOLE 40 MG TAB DR PO SCH (21:18)
[2022-07-07] MEDS: ALBUTEROL 0.083% 2.5 MG/3 ML INH IH SCH (22:06)
[2022-07-07 23:38] VITALS: BP 158/78
[2022-07-08] MEDS: 0.9%NACL 1000ML 1,000 ML IV SCH ×2 (00:30→13:00)
[2022-07-08 03:53] VITALS: BP 128/68
[2022-07-08 04:27] LABS: BASOPHILS % (AUTO) 0.2 % (0.0-5.0); EOSINOPHILS % (AUTO) 2.6 % (0.0-8.0); HEMATOCRIT 37.5 % (42-54); LYMPHOCYTES % (AUTO) 36.6 % (21.0-51.0); MEAN CORPUSCULAR HEMOGLOBIN 30.2 pg (27.0-33.0); MEAN CORPUSCULAR HGB CONC 34.7 g/dL (32.0-36.0); MONOCYTES % (AUTO) 15.5 % (3.0-13.0); NEUTROPHILS % (AUTO) 44.6 % (40.0-77.0); PLATELET COUNT (AUTO) 59 K/uL (130-400); RED BLOOD CELL COUNT(AUTO) 4.31 MIL/uL (4.50-6.20); RED CELL DISTRIBUTION WIDTH 14.9 % (11.0-15.5); WHITE BLOOD COUNT (AUTO) 4.3 K/uL (4.8-10.8)
[2022-07-08 04:40] LABS: CREATININE 1.6 mg/dL (0.5-1.5); MAGNESIUM 1.5 mg/dL (1.80-2.40); PHOSPHORUS 3.8 mg/dL (2.5-4.9); POTASSIUM 4.1 mmol/L (3.5-5.1)
[2022-07-08] MEDS: ALBUTEROL 0.083% 2.5 MG/3 ML INH IH SCH (06:52)
[2022-07-08 08:01] VITALS: BP 125/77
[2022-07-08] MEDS: ZOSYN 3.375GM +NS 50ML IVPB SCH (08:46)
[2022-07-08] MEDS: FLUDROCORTISONE ACETATE 0.1 MG TABLET PO SCH (08:47)
[2022-07-08] MEDS: PREGABALIN 75 MG CAPSULE PO SCH ×2 (08:47→13:13)
[2022-07-08] MEDS: MIDODRINE HCL 5 MG TABLET PO SCH ×2 (08:47→13:15)
[2022-07-08] MEDS: PANTOPRAZOLE 40 MG TAB DR PO SCH (08:48)
[2022-07-08] MEDS: DORZOLAMIDE HCL 2% 10ML DROPS OP SCH (08:51)
[2022-07-08] MEDS ORDERED: CLOPIDOGREL 75MG TAB PO SCH (09:00)
[2022-07-08] MEDS ORDERED: ASPIRIN 81 MG EC TAB PO SCH (09:00)
[2022-07-08 11:58] VITALS: BP 146/72
[2022-07-08] MEDS ORDERED: MIDO5TAB4 PO (14:10)
== END 2022-07-08 16:26 | disposition home or self-care (01) | DRG 73 ==
LOC: EDH 12:57 → EDHIP 17:13 → 2DH 07-07 12:00
PROVIDERS: ADMIT Hospitalist; ATTEND Hospitalist
DX: G90.8 Other disorders of autonomic nervous system (principal); E11.10 Type 2 diabetes mellitus with ketoacidosis without coma; N17.9 Acute kidney failure, unspecified; G61.0 Guillain-Barre syndrome; I13.0 Hypertensive heart and chronic kidney disease with heart failure and stage 1 through stage 4 chronic kidney disease, or unspecified chronic kidney disease; E27.40 Unspecified adrenocortical insufficiency; I95.9 Hypotension, unspecified; E11.43 Type 2 diabetes mellitus with diabetic autonomic (poly)neuropathy; R55 Syncope and collapse; I50.9 Heart failure, unspecified; E11.22 Type 2 diabetes mellitus with diabetic chronic kidney disease; I25.10 Atherosclerotic heart disease of native coronary artery without angina pectoris; J44.9 Chronic obstructive pulmonary disease, unspecified; D69.6 Thrombocytopenia, unspecified; K74.60 Unspecified cirrhosis of liver; N18.9 Chronic kidney disease, unspecified; G89.29 Other chronic pain; M47.9 Spondylosis, unspecified; M54.9 Dorsalgia, unspecified; E86.9 Volume depletion, unspecified; Z95.1 Presence of aortocoronary bypass graft; Z79.02 Long term (current) use of antithrombotics/antiplatelets; Z95.0 Presence of cardiac pacemaker; Y92.009 Unspecified place in unspecified non-institutional (private) residence as the place of occurrence of the external cause; Z88.2 Allergy status to sulfonamides; Z95.5 Presence of coronary angioplasty implant and graft
CPT/HCPCS: 36415; 70450; 71250; 72125; 73610; 74176; 80048; 80053; 81001; 82533; 82570; 82948; 83605; 83735; 83880; 84100; 84145; 84300; 84443; 84484; 85025; 87040; 93005; 93306; 94640; 94664; 97039; G0378; J1720; J1885; J2543; J3490; J7030

== ENCOUNTER 2023-03-17 05:46 | Day surgery (SDC) | payer OTHER ==
[2023-03-17] VITALS (11 sets, daily range): BP systolic 59–143; BP diastolic 37–90; PULSE 69–75; RESP 15–17
[~2023-03-17] VITALS: Ht 182.9 cm; Wt 99.8 kg
[~2023-03-17 05:46] MED LIST changes: -ACET-2079 PO; +CLON0.1T PO; +DROX100C2 PO; -INSREG SQ; +INSU100C6 SQ; -LISI20TA24 PO; -METF-446 PO; +MIDO5TAB4 PO; -PIND10TA2 PO; +RANO500T6 PO; +SUCR1TAB2 PO
[2023-03-17] MEDS ORDERED: 0.9%NACL 1000ML 1,000 ML IV ONE (06:23)
[2023-03-17] MEDS ORDERED: PROPOFOL 10 MG/ML 20ML VIAL IV ONE ×2 (07:05)
== END 2023-03-17 09:30 | disposition home or self-care (01) ==
LOC: DAH 05:46 → ENDO 05:46
PROVIDERS: ATTEND Internal Medicine Gastroenterology
DX: Z12.11 Encounter for screening for malignant neoplasm of colon (principal); K76.6 Portal hypertension; K57.30 Diverticulosis of large intestine without perforation or abscess without bleeding; K29.50 Unspecified chronic gastritis without bleeding; K59.00 Constipation, unspecified; K21.9 Gastro-esophageal reflux disease without esophagitis; K80.20 Calculus of gallbladder without cholecystitis without obstruction; K76.89 Other specified diseases of liver; E11.22 Type 2 diabetes mellitus with diabetic chronic kidney disease; I12.9 Hypertensive chronic kidney disease with stage 1 through stage 4 chronic kidney disease, or unspecified chronic kidney disease; N18.9 Chronic kidney disease, unspecified; I25.10 Atherosclerotic heart disease of native coronary artery without angina pectoris; J44.9 Chronic obstructive pulmonary disease, unspecified; I25.2 Old myocardial infarction; M19.90 Unspecified osteoarthritis, unspecified site; E78.5 Hyperlipidemia, unspecified; Z86.010 Personal history of colon polyps; Z79.899 Other long term (current) drug therapy; Z72.89 Other problems related to lifestyle; Z88.8 Allergy status to other drugs, medicaments and biological substances
CPT/HCPCS: 82948; 43239; 45378; J7030 ×2; J2704 ×2; A4620; A4215 ×2; A4223; A7002; A4222; A4221; A4663; A4216; A4606; J3490

== ENCOUNTER → 2023-03-29 | Outpatient (CLI) | payer OTHER ==
[~2023-03-29] MED LIST changes: -DROX100C2 PO; -MIDO5TAB4 PO
== END | disposition home or self-care (01) ==
LOC: RAH 12:26
PROVIDERS: ATTEND Family Medicine
DX: R13.10 Dysphagia, unspecified (principal)
CPT/HCPCS: 74230; 92611

== ENCOUNTER 2023-08-13 13:39 | Observation (INO) | payer OTHER ==
[~2023-08-13] VITALS: Ht 182.9 cm; Wt 96.5 kg
[2023-08-13] MEDS: MORPHINE 4 MG SYG IVP ONE ×2 (14:42→18:57)
[2023-08-13] MEDS: ONDANSETRON 4MG INJ IVP ONE ×2 (14:42→18:57)
[2023-08-13 14:44] LABS: BASOPHILS # (AUTO) 0.01 K/uL (0.00-0.20); BASOPHILS % (AUTO) 0.3 % (0.0-5.0); EOSINOPHILS # (AUTO) 0.04 K/uL (0.00-0.70); EOSINOPHILS % (AUTO) 1.2 % (0.0-8.0); HEMATOCRIT 36.5 % (42-54); IMMATURE GRANULOCYTE ABSOLUTE 0.02 K/uL (0-1); LYMPHOCYTES # (AUTO) 1.2 K/uL (1.0-4.8); LYMPHOCYTES % (AUTO) 37.2 % (21.0-51.0); MEAN CORPUSCULAR HEMOGLOBIN 30.5 pg (27.0-33.0); MEAN CORPUSCULAR VOLUME 89.9 fL (79-99); MONOCYTES # (AUTO) 0.3 K/uL (0.1-1.0); MONOCYTES % (AUTO) 10.1 % (3.0-13.0); NEUTROPHILS # (AUTO) 1.7 K/uL (1.8-7.7); NEUTROPHILS % (AUTO) 50.6 % (40.0-77.0); PLATELET COUNT (AUTO) 82 K/uL (130-400); RED BLOOD CELL COUNT(AUTO) 4.06 MIL/uL (4.50-6.20); RED CELL DISTRIBUTION WIDTH 14.9 % (11.0-15.5); WHITE BLOOD COUNT (AUTO) 3.3 K/uL (4.8-10.8)
[2023-08-13 14:55] LABS: INR <= 0.93 (0.85-1.15); PROTHROMBIN TIME 10.7 SEC (9.6-11.6)
[2023-08-13 14:56] LABS: CREATININE 1.6 mg/dL (0.5-1.5); PARTIAL THROMBOPLASTIN TIME 28.3 SEC (26.3-35.5); POTASSIUM 3.5 mmol/L (3.5-5.1)
[2023-08-13 15:01] LABS: BILIRUBIN,TOTAL 0.3 mg/dL (0.2-1.0); TOTAL PROTEIN, SERUM 6.8 g/dL (6.0-8.3)
[2023-08-13] MEDS: MORPHINE 4 MG SYG ONE (19:26)
[2023-08-13] MEDS: ONDANSETRON 4MG INJ ONE (19:26)
[2023-08-14] VITALS (8 sets, daily range): BP systolic 103–135; BP diastolic 61–99; PULSE 69–98; RESP 17–22; O2SAT 97–98
[2023-08-14] MEDS: MORPHINE 4 MG SYG IVP ONE (00:41)
[2023-08-14] MEDS: ONDANSETRON 4MG INJ IVP ONE (00:41)
[2023-08-14] MEDS ORDERED: ONDANSETRON 4MG INJ IV PRN (01:30)
[2023-08-14] MEDS ORDERED: MORPHINE 2 MG SYG IVP PRN (01:30)
[2023-08-14] MEDS ORDERED: GLUCAGON 1MG KIT 1 MG ML IM PRN (01:30)
[2023-08-14] MEDS ORDERED: DEXTROSE 50%-WATER 50 ML DISP.SYRIN IV PRN (01:30)
[2023-08-14] MEDS ORDERED: POTASSIUM CHLORIDE 10% ELIXIR 20 MEQ/15 ML UDCUP PO PRN (01:30)
[2023-08-14] MEDS ORDERED: ACETAMINOPHEN 325 MG TAB PO PRN ×2 (01:30)
[2023-08-14] MEDS ORDERED: POTASSIUM CHLORIDE 10MEQ/100ML 100 ML IV PRN (01:30)
[2023-08-14] MEDS ORDERED: KCL 20 MEQ ERTAB PO PRN (01:30)
[2023-08-14] MEDS ORDERED: PHARMACY COMMUNICATION MISC SCH (02:00)
[2023-08-14] MEDS: PHARMACY COMMUNICATION MISC SCH (03:30)
[2023-08-14] MEDS: PROMETHAZINE HCL 25 MG/ML 1ML AMPULE IM ONE (04:58)
[2023-08-14 06:57] LABS: BASOPHILS # (AUTO) 0.01 K/uL (0.00-0.20); BASOPHILS % (AUTO) 0.3 % (0.0-5.0); EOSINOPHILS % (AUTO) 2.7 % (0.0-8.0); HEMATOCRIT 38.4 % (42-54); IMMATURE GRANULOCYTE ABSOLUTE 0.01 K/uL (0-1); LYMPHOCYTES # (AUTO) 1.1 K/uL (1.0-4.8); LYMPHOCYTES % (AUTO) 30.6 % (21.0-51.0); MEAN CORPUSCULAR HEMOGLOBIN 30.9 pg (27.0-33.0); MEAN CORPUSCULAR HGB CONC 33.6 g/dL (32.0-36.0); MEAN CORPUSCULAR VOLUME 92.1 fL (79-99); MONOCYTES # (AUTO) 0.6 K/uL (0.1-1.0); MONOCYTES % (AUTO) 14.9 % (3.0-13.0); NEUTROPHILS # (AUTO) 1.9 K/uL (1.8-7.7); NEUTROPHILS % (AUTO) 51.2 % (40.0-77.0); PLATELET COUNT (AUTO) 72 K/uL (130-400); RED BLOOD CELL COUNT(AUTO) 4.17 MIL/uL (4.50-6.20); RED CELL DISTRIBUTION WIDTH 15.1 % (11.0-15.5); WHITE BLOOD COUNT (AUTO) 3.7 K/uL (4.8-10.8)
[2023-08-14 07:12] LABS: ALBUMIN 2.9 g/dL (3.5-5.0); BILIRUBIN,TOTAL 0.4 mg/dL (0.2-1.0); CREATININE 1.4 mg/dL (0.5-1.5); MAGNESIUM 1.8 mg/dL (1.80-2.40); TOTAL PROTEIN, SERUM 6.5 g/dL (6.0-8.3)
[2023-08-14] MEDS: INSULIN HUMULIN R 100 UNIT/ML 3ML SQ SCH (07:30)
[2023-08-14] MEDS: FAMOTIDINE 20MG TAB PO SCH (09:08)
[2023-08-14] MEDS ORDERED: BENZONATATE 100 MG CAPSULE PO PRN (15:30)
[2023-08-14] MEDS ORDERED: NON-FORMULARY MEDICATION 1 EACH (Ondansetron HCl 8 MG) PO PRN (15:30)
[2023-08-14] MEDS ORDERED: POTASSIUM CHLORIDE 10MEQ SR TAB PO PRN (15:30)
[2023-08-14] MEDS ORDERED: NITROGLYCERIN 0.4 MG SL TAB SL PRN (15:30)
[2023-08-14] MEDS ORDERED: COMPAZINE PO PRN (15:30)
[2023-08-14] MEDS ORDERED: ALBUTEROL 0.083% 2.5 MG/3 ML INH IH SCH (17:00)
[2023-08-14] MEDS: INSULIN LISPRO 100 UNIT/ML 3ML SQ SCH (17:07)
[2023-08-14] MEDS: ALBUTEROL 0.083% 2.5 MG/3 ML INH IH SCH (19:19)
[2023-08-14] MEDS: DORZOLAMIDE HCL OP SCH (19:49)
[2023-08-14] MEDS: LATANOPROST 2.5 ML DROPS OP SCH (19:49)
[2023-08-14] MEDS: DULERA IH SCH (19:49)
[2023-08-14] MEDS: AMITRIPTYLINE 25 MG TABLET PO SCH (19:50)
[2023-08-14] MEDS: PANTOPRAZOLE 40 MG TAB DR PO SCH (19:50)
[2023-08-14] MEDS: ATORVASTATIN 10 MG TABLET PO SCH (19:50)
[2023-08-14] MEDS: CITALOPRAM 20 MG TABLET PO SCH (19:50)
[2023-08-14] MEDS: FERROUS SULFATE 325 MG TABLET.DR PO SCH (19:50)
[2023-08-14] MEDS: MONTELUKAST SODIUM 10 MG TAB PO SCH (19:51)
[2023-08-14] MEDS: RANOLAZINE 500 MG TAB.SR.12H PO SCH (19:51)
[2023-08-14] MEDS: FLUDROCORTISONE ACETATE 0.1 MG TABLET PO SCH (19:51)
[2023-08-14] MEDS: SUCRALFATE 1 GM TABLET PO SCH (19:58)
[2023-08-14] MEDS: MAGNESIUM 2GM PREMIX 50ML 50 ML IV PRN (20:00)
[2023-08-15] VITALS (11 sets, daily range): BP systolic 107–157; BP diastolic 64–77; PULSE 66–107; RESP 18; O2SAT 99
[2023-08-15] MEDS: ASPIRIN 81 MG EC TAB PO SCH (08:57)
[2023-08-15] MEDS: EMPAGLIFLOZIN 25MG TABLET PO SCH (08:59)
[2023-08-15] MEDS: CLONIDINE HCL 0.1 MG TABLET PO SCH (08:59)
[2023-08-15] MEDS: CLOPIDOGREL 75MG TAB PO SCH (09:00)
[2023-08-15] MEDS: HYDROCODONE/ACETAMINOPHEN 5/325 MG TAB PO PRN (09:04)
[2023-08-15] MEDS: CETIRIZINE HCL 5 MG TABLET PO SCH (09:05)
[2023-08-16] VITALS (8 sets, daily range): BP systolic 94–147; BP diastolic 57–80; PULSE 68–78; RESP 16–20; O2SAT 97–98
[2023-08-16 10:22] LABS: HEMATOCRIT 37.6 % (42-54); MEAN CORPUSCULAR HEMOGLOBIN 30.9 pg (27.0-33.0); MEAN CORPUSCULAR VOLUME 90.8 fL (79-99); RED BLOOD CELL COUNT(AUTO) 4.14 MIL/uL (4.50-6.20); RED CELL DISTRIBUTION WIDTH 14.6 % (11.0-15.5); WHITE BLOOD COUNT (AUTO) 3.6 K/uL (4.8-10.8)
[2023-08-16 10:24] LABS: CREATININE 1.4 mg/dL (0.5-1.5); POTASSIUM 3.7 mmol/L (3.5-5.1)
[2023-08-16] MEDS ORDERED: PROC-30 PO (11:58)
[2023-08-16] MEDS ORDERED: MOME13HF12 IH (11:58)
[2023-08-16] MEDS ORDERED: IPRA4AER IH (11:58)
[2023-08-16] MEDS ORDERED: BUDE8.435 NS (11:58)
[2023-08-16] MEDS ORDERED: PIND10TA2 PO (11:58)
[2023-08-16] MEDS ORDERED: TEST75GE5 TD (11:58)
[2023-08-16] MEDS ORDERED: SERT-439 PO (11:58)
[2023-08-16] MEDS ORDERED: INSLAN SQ (11:58)
[2023-08-16] MEDS ORDERED: PIOG30TA70 PO (11:58)
[2023-08-16] MEDS ORDERED: BETA15C TP (11:58)
[2023-08-16] MEDS ORDERED: IPRA42SP NS (12:00)
[2023-08-30] MEDS ORDERED: EMPA25TA PO (18:22)
== END 2023-08-16 15:40 | disposition home or self-care (01) ==
LOC: EDH 13:39 → EDHIP 13:40 → UNDOADMOB 08-14 01:07 → EDHIP 08-14 01:07 → 4AH 08-14 01:57 → EDHIP 08-14 01:57 → UNDODISOB 08-16 15:40
PROVIDERS: ADMIT Hospitalist; ATTEND Hospitalist
DX: M25.551 Pain in right hip (principal); M25.511 Pain in right shoulder; D61.818 Other pancytopenia; I13.0 Hypertensive heart and chronic kidney disease with heart failure and stage 1 through stage 4 chronic kidney disease, or unspecified chronic kidney disease; E11.22 Type 2 diabetes mellitus with diabetic chronic kidney disease; I50.9 Heart failure, unspecified; N18.9 Chronic kidney disease, unspecified; K74.60 Unspecified cirrhosis of liver; J44.9 Chronic obstructive pulmonary disease, unspecified; I25.10 Atherosclerotic heart disease of native coronary artery without angina pectoris; Z95.0 Presence of cardiac pacemaker; Z95.1 Presence of aortocoronary bypass graft; Z95.5 Presence of coronary angioplasty implant and graft; Z85.820 Personal history of malignant melanoma of skin; W18.30XA Fall on same level, unspecified, initial encounter; Y93.89 Activity, other specified; Y92.89 Other specified places as the place of occurrence of the external cause; Y99.8 Other external cause status
CPT/HCPCS: 96376 ×2; 96375; 99285; 80053 ×2; 83690 ×2; 85025 ×2; 85610; 85730; 36415 ×3; 71045; 73000; 73060; 73502; 73552; 73030; 70450; 72125; 96372 ×2; 96365; 96366; 82150; 83735; 82948 ×10; 94640 ×6; 94664; 80048; 85027; 97161; 97116; G0378 ×72; J2405 ×3; J2270 ×3; J3475; J2550; J1815

== ENCOUNTER 2023-08-29 15:00 | Observation (INO) | payer OTHER ==
[~2023-08-29] VITALS: Ht 175.3 cm; Wt 87.8 kg
[~2023-08-29 15:00] MED LIST changes: -ALBU2.5V2 IH; -AMIT25TA9 PO; +BETA15C TP; +BUDE8.435 NS; -CITA-108 PO; -COMPAZINE PO; -DORZ10DR19 OP; -DULERA IH; -FLUD0.1T2 PO; +INSLAN SQ; +IPRA42SP NS; +IPRA4AER IH; +MOME13HF12 IH; +PIND10TA2 PO; +PIOG30TA70 PO; +PROC10TA13 PO; +SERT-439 PO; +TEST75GE5 TD
[2023-08-29 15:58] LABS: BASOPHILS # (AUTO) 0.01 K/uL (0.00-0.20); BASOPHILS % (AUTO) 0.2 % (0.0-5.0); EOSINOPHILS # (AUTO) 0.03 K/uL (0.00-0.70); EOSINOPHILS % (AUTO) 0.6 % (0.0-8.0); HEMATOCRIT 41.6 % (42-54); IMMATURE GRANULOCYTE ABSOLUTE 0.01 K/uL (0-1); LYMPHOCYTES # (AUTO) 1.6 K/uL (1.0-4.8); LYMPHOCYTES % (AUTO) 29.5 % (21.0-51.0); MEAN CORPUSCULAR HEMOGLOBIN 30.7 pg (27.0-33.0); MEAN CORPUSCULAR HGB CONC 34.6 g/dL (32.0-36.0); MEAN CORPUSCULAR VOLUME 88.7 fL (79-99); MONOCYTES # (AUTO) 0.7 K/uL (0.1-1.0); MONOCYTES % (AUTO) 14.1 % (3.0-13.0); NEUTROPHILS # (AUTO) 2.9 K/uL (1.8-7.7); NEUTROPHILS % (AUTO) 55.4 % (40.0-77.0); PLATELET COUNT (AUTO) 92 K/uL (130-400); RED BLOOD CELL COUNT(AUTO) 4.69 MIL/uL (4.50-6.20); RED CELL DISTRIBUTION WIDTH 13.8 % (11.0-15.5); WHITE BLOOD COUNT (AUTO) 5.3 K/uL (4.8-10.8)
[2023-08-29 16:11] LABS: APPEARANCE,URINE CLEAR (CLEAR); BILIRUBIN,URINE NEGATIVE (NEGATIVE); COLOR,URINE LIGHT-YELLOW (YELLOW); GLUCOSE, URINE (UA) 500 mg/dL (NEGATIVE); KETONES,URINE 60 mg/dL (NEGATIVE); LEUKOCYTE ESTERASE ,URINE NEGATIVE Leu/uL (NEGATIVE); NITRATE,URINE NEGATIVE (NEGATIVE); PH,URINE 5.5 (5.0-8.0); PROTEIN,URINE NEGATIVE (NEGATIVE); UROBILINOGEN,URINE 0.2 mg/dL (0.2-1.0)
[2023-08-29 16:17] LABS: ADD UA MICROSCOPIC YES
[2023-08-29 16:18] LABS: BACTERIA,URINE RARE /HPF (None Seen); MUCUS,URINE RARE LPF (None Seen); SQUAMOUS EPITHELIAL CELL,UR RARE /HPF (0-2); WBC,URINE 0-1 /HPF (0-1)
[2023-08-29 16:33] LABS: CREATININE 1.2 mg/dL (0.5-1.3); POTASSIUM 4.7 mmol/L (3.5-5.1)
[2023-08-29 16:37] LABS: ALBUMIN 3.6 g/dL (3.5-5.0); BILIRUBIN,TOTAL 0.8 mg/dL (0.2-1.0); TOTAL PROTEIN, SERUM 7.8 g/dL (6.0-8.3)
[2023-08-29 18:14] LABS: AMPHET/METH SCREEN,URINE NEGATIVE (NEGATIVE); BARBITURATE SCREEN, URINE NEGATIVE (NEGATIVE); BENZODIAZEPINES SCREEN,URINE NEGATIVE (NEGATIVE); CANNABINOID SCREEN,URINE POSITIVE (NEGATIVE); COCAINE SCREEN,URINE NEGATIVE (NEGATIVE); OPIATE SCREEN,URINE POSITIVE (NEGATIVE); PHENCYCLIDINE SCREEN,URINE NEGATIVE (NEGATIVE)
[2023-08-29] MEDS: MAGNESIUM 2GM PREMIX 50ML 50 ML IV ONE (18:39)
[2023-08-29] MEDS: 0.9% NACL 500ML IV.SOLN 500 ML IV ONE (18:45)
[2023-08-29] MEDS ORDERED: MAGNESIUM 2GM PREMIX 50ML 50 ML IV PRN (22:00)
[2023-08-29] MEDS ORDERED: ONDANSETRON 4MG INJ IV PRN (22:00)
[2023-08-29] MEDS ORDERED: DEXTROSE 50%-WATER 50 ML DISP.SYRIN IV PRN (22:00)
[2023-08-29] MEDS ORDERED: KCL 20 MEQ ERTAB PO PRN (22:00)
[2023-08-29] MEDS ORDERED: GLUCAGON 1MG KIT 1 MG ML IM PRN (22:00)
[2023-08-29] MEDS ORDERED: POTASSIUM CHLORIDE 10% ELIXIR 20 MEQ/15 ML UDCUP PO PRN (22:00)
[2023-08-29] MEDS ORDERED: POTASSIUM CHLORIDE 20MEQ/100ML 100 ML IV PRN (22:00)
[2023-08-30] VITALS (9 sets, daily range): BP systolic 119–153; BP diastolic 69–96; PULSE 70–79; RESP 18–22; O2SAT 94–100
[2023-08-30 06:36] LABS: BASOPHILS # (AUTO) 0.01 K/uL (0.00-0.20); BASOPHILS % (AUTO) 0.2 % (0.0-5.0); EOSINOPHILS # (AUTO) 0.03 K/uL (0.00-0.70); EOSINOPHILS % (AUTO) 0.6 % (0.0-8.0); HEMATOCRIT 39.2 % (42-54); IMMATURE GRANULOCYTE ABSOLUTE 0.02 K/uL (0-1); LYMPHOCYTES # (AUTO) 1.4 K/uL (1.0-4.8); LYMPHOCYTES % (AUTO) 27.9 % (21.0-51.0); MEAN CORPUSCULAR HEMOGLOBIN 30.7 pg (27.0-33.0); MEAN CORPUSCULAR HGB CONC 35.2 g/dL (32.0-36.0); MEAN CORPUSCULAR VOLUME 87.1 fL (79-99); MONOCYTES # (AUTO) 0.8 K/uL (0.1-1.0); MONOCYTES % (AUTO) 16.4 % (3.0-13.0); NEUTROPHILS # (AUTO) 2.8 K/uL (1.8-7.7); NEUTROPHILS % (AUTO) 54.5 % (40.0-77.0); PLATELET COUNT (AUTO) 77 K/uL (130-400); RED CELL DISTRIBUTION WIDTH 13.5 % (11.0-15.5); WHITE BLOOD COUNT (AUTO) 5.1 K/uL (4.8-10.8)
[2023-08-30 06:54] LABS: ALBUMIN 3.2 g/dL (3.5-5.0); BILIRUBIN,DIRECT 0.2 mg/dL (0.0-0.3); BILIRUBIN,TOTAL 0.7 mg/dL (0.2-1.0); CREATININE 1.2 mg/dL (0.5-1.3); MAGNESIUM 1.6 mg/dL (1.80-2.40)
[2023-08-30 07:06] LABS: B-TYPE NATRIURETIC PEPTIDE 94 pg/mL (0-100)
[2023-08-30] MEDS: INSULIN HUMULIN R 100 UNIT/ML 3ML SQ SCH (07:30)
[2023-08-30] MEDS: FAMOTIDINE 20MG VIAL IV SCH (09:31)
[2023-08-30] MEDS ORDERED: ARTIFICAL TEARS SOL 15 ML OU PRN (12:30)
[2023-08-30] MEDS ORDERED: CITA-108 PO (18:15)
[2023-08-30] MEDS ORDERED: LEVO75CA5 PO (18:22)
[2023-08-30] MEDS ORDERED: METF-444 PO (18:22)
[2023-08-30] MEDS ORDERED: RANO500T2 PO (18:22)
[2023-08-30] MEDS ORDERED: GLIP10TA9 PO (18:22)
[2023-08-30] MEDS ORDERED: METO-391 PO (18:22)
[2023-08-31 04:00] VITALS: BP 148/78; PULSE 74; RESP 20
[2023-08-31 07:41] LABS: POTASSIUM 3.6 mmol/L (3.5-5.1)
[2023-08-31 07:42] VITALS: PULSE 61; RESP 20; O2SAT 99
[2023-08-31 08:00] VITALS: BP 160/91; PULSE 70; RESP 21
[2023-08-31 08:25] LABS: MAGNESIUM 1.2 mg/dL (1.80-2.40)
[2023-08-31 09:35] VITALS: O2SAT 100
[2023-08-31] MEDS ORDERED: TOBR5DRO46 OP (11:14)
== END 2023-08-31 14:40 | disposition home or self-care (01) ==
LOC: EDH 15:00 → EDHIP 21:43 → 3DH 08-30 02:56
PROVIDERS: ADMIT Hospitalist; ATTEND Hospitalist
DX: R41.82 Altered mental status, unspecified (principal); D69.6 Thrombocytopenia, unspecified; E83.42 Hypomagnesemia; I11.0 Hypertensive heart disease with heart failure; I50.9 Heart failure, unspecified; G93.41 Metabolic encephalopathy; E87.1 Hypo-osmolality and hyponatremia; E86.0 Dehydration; F11.90 Opioid use, unspecified, uncomplicated; F12.90 Cannabis use, unspecified, uncomplicated; I25.810 Atherosclerosis of coronary artery bypass graft(s) without angina pectoris; E11.9 Type 2 diabetes mellitus without complications; E78.00 Pure hypercholesterolemia, unspecified; K74.60 Unspecified cirrhosis of liver; Z95.5 Presence of coronary angioplasty implant and graft; Z79.4 Long term (current) use of insulin; Z85.820 Personal history of malignant melanoma of skin; Z88.1 Allergy status to other antibiotic agents; Z88.5 Allergy status to narcotic agent; Z88.2 Allergy status to sulfonamides; Z79.82 Long term (current) use of aspirin; Z95.1 Presence of aortocoronary bypass graft
CPT/HCPCS: 96365; 96366; 99285; 83735 ×3; 84484; 80053; 80305; 82140; 85025 ×2; 87040 ×2; 83605 ×2; 81001; 36415 ×3; 71045; 70450; 93005; 96376 ×2; 96375; 82550; 80076; 80048; 83880; 82948 ×6; 97161; 97116; 84132; G0378 ×40; J3475; J7040; J3490 ×3

== ENCOUNTER → 2024-04-26 | Outpatient (CLI) | payer OTHER ==
[~2024-04-26] MED LIST changes: -AEC81 PO; -ATOR10 PO; -BENZ-39 PO; -BETA15C TP; -BUDE8.435 NS; -CETI10TA57 PO; +CITA-108 PO; -CLON0.1T PO; -FERR-72 PO; +GLIP10TA16 PO; -INSLAN SQ; -INSU100C6 SQ; -IPRA42SP NS; -IPRA4AER IH; -LATA2.5D14 OP; +LEVO75CA5 PO; +METF-444 PO; +METO-391 PO; -MOME13HF12 IH; -MONT-39 PO; -NITR0.4T50 SL; -ONDA-105 PO; -PANT40TA54 PO; -PIND10TA2 PO; -PIOG30TA70 PO; -PREG75 PO; -PROC10TA13 PO; +RANO500T2 PO; -RANO500T6 PO; -SERT-439 PO; -SUCR1TAB2 PO; -TEST75GE5 TD; +TOBR5DRO46 OP
--- NOTE | 2024-04-26 13:40 | NUR ---
MBSS COMPLETED (OUTPATIENT). No aspiration; deep non-transient penetrations before the swallow with nectar thick liquids and mixed textures. Recommend regular solids, honey thick liquids and pills crushed or whole 1 per swallow with pureed as tolerated. Compensatory strategies: 1. sit upright during oral intake 2. small bites/sips 3. NO MIXED TEXTURES 4. slow oral intake 5. extra dry swallows 6. NO STRAWS CLINICAL OB reviewed results and recommendations with patient. CLINICAL OB educated patient on risks and consequences of aspiration. Speech therapy not warranted at this time. Dysphagia likely patient's baseline (patient with Hx of being on thicken liquids and completed therapy with speech as outpatient post GBS). All questions answered. Addendum: 04/26/[address] [facility]AR[facility] YAN Amended: Links added.
--- NOTE | 2024-04-26 22:26 | HMCIMG ---
MODIFIED BARIUM SWALLOW W CINE REASON: FEEDING DIFFICULTIES UNSPECIFIED, DYSPHAGIA. COMPARISON: None TECHNIQUE: Modified barium swallow study was performed. FINDINGS: Please see procedure report by referring speech therapist. IMPRESSION: Modified barium swallow study.
== END | disposition home or self-care (01) ==
LOC: RAH 12:30
PROVIDERS: ATTEND Internal Medicine Gastroenterology
DX: R13.11 Dysphagia, oral phase (principal); R63.30 Feeding difficulties, unspecified
CPT/HCPCS: 74230; 92611

== ENCOUNTER → 2024-10-03 | Outpatient (CLI) | payer OTHER ==
[~2024-10-03] MED LIST changes: -LEVO75CA5 PO; +LEVO75CA6 PO
--- NOTE | 2024-10-04 08:19 | HMCSR ---
APPROVED REPORT Indications Hypertension Assessment Origin Proximal Mid D istal Superior Mesenteric A. PSV 327.20cm/s PSV 301.50cm/s PSV 171.90cm/s EDV 75.50cm/s EDV 55.40cm/s EDV 4 3.40cm/s Ratio 2.64Ratio 2.42Ratio 1.38 Celiac [place] PSV 307.60cm/s PSV 381.40cm/s PSV 291.10cm/s EDV 36.90cm/s EDV 41.00cm/s EDV 3 7.90cm/s Ratio 2.47Ratio 3.06Ratio 2.34 Inferior Mesenteric A. PSV 405.30cm/s EDV 21.70cm/s Ratio 2.65 Aortic Duplex A/PTransverseLongitudinal Proximal Aorta 2.22cm2.52cm2.73cm Mid Aorta 2.13cm1.87cm2.10cm Distal Aorta 1.99cm2.23cm2.14cm Aortic Doppler VelocityWaveform Proximal Aorta 124.60 cm/sec Aorta Mid. 93.80 cm/sec Distal Aorta 153.80 cm/sec Technologist Impression Evidency of Elevated velocities with normal ratios. Aorta increased velocities noted >100 cm/s Conclusion Evidency of Elevated velocities with normal ratios. Aorta increased velocities noted >100 cm/s Conclusion Evidency of Elevated velocities with normal ratios. Aorta increased velocities noted >100 cm/s
--- NOTE | 2024-10-04 08:26 | HMCSR ---
APPROVED REPORT Indications HTN Renal Artery Doppler Proximal (R) 115.9/16.6 cm/secOrigin (L) 138.4/20.0 cm/sec Mid (R) 117.1/15.4 cm/secProximal (L) 170.7/21.5 cm/sec Distal (R) 82.3/8.5 cm/secMid (L) 152.3/20.0 cm/sec Renal/Aorta Ratio (R) 1.00Distal (L) 75.7/15.4 cm/sec Resistive Index (R) 0.81Renal Aorta Ratio (L) 1.46 Segmental A. (R) 20.0/3.8 cm/secResistive Index (L) 0.77 Lt. Segmental A. (L) 25.0/5.8 cm/sec Renal Measurements Kidney Size (R) 11.1x5.3x3.8 cmKidney Size (L)11.0x4.2x4.4 cm Aortic Doppler VelocityWaveform Aorta Mid. 117.1 cm/sec Technologist Impression An attempt was made to evaluate the abdominal aorta, the right and left renal arteries and kidneys, u tilizing duplex ultrasonography and color flow doppler. Based on the renal/aortic ratio there is no evidence of significant stenosis in the bilateral renal a rteries. Both kidneys appear to be within normal size parameters (greater than 9.0cm and symmetrical). Conclusion An attempt was made to evaluate the abdominal aorta, the right and left renal arteries and kidneys, u tilizing duplex ultrasonography and color flow doppler. Based on the renal/aortic ratio there is no evidence of significant stenosis in the bilateral renal a rteries. Both kidneys appear to be within normal size parameters (greater than 9.0cm and symmetrical). Conclusion An attempt was made to evaluate the abdominal aorta, the right and left renal arteries and kidneys, u tilizing duplex ultrasonography and color flow doppler. Based on the renal/aortic ratio there is no evidence of significant stenosis in the bilateral renal a rteries. Both kidneys appear to be within normal size parameters (greater than 9.0cm and symmetrical).
== END | disposition home or self-care (01) ==
LOC: SHCH 07:52
PROVIDERS: ATTEND Internal Medicine Cardiovascular Disease
DX: I10 Essential (primary) hypertension (principal)
CPT/HCPCS: 93975; 93978

== ENCOUNTER 2024-10-25 13:39 | Emergency (ER) | payer MEDICARE, OTHER ==
[~2024-10-25] VITALS: Ht 182.9 cm; Wt 108.9 kg
--- NOTE | 2024-10-25 14:16 | EKG ---
[facility] Test Date: 2024-10-25 Test Time: 14:13:25 Pat Name: MICHAEL MCCRARY Department: ED Room: Gender: M Surveillance Operator: [id number] : 1945 Requested By: MICKI BYRD Order Number: [id number] Reading MD: Carlo Carranza Measurements Intervals [place] Rate: 82 P: 234 AL: 160 QRS: 0 QRSD: 139 T: 7 QT: 398 QTc: 465 Interpretive Statements Atrial-paced complexes Compared to ECG 08/29/2023 15:57:57 Ventricular premature complex(es) no longer present Right bundle-branch block no longer present Electronically Signed On 10-26-2024 16:53:25 CDT by Carlo Carranza Please click the below link to view image of tracing.
[2024-10-25 14:31] LABS: BASOPHILS # (AUTO) 0.01 K/uL (0.00-0.20); BASOPHILS % (AUTO) 0.1 % (0.0-5.0); EOSINOPHILS # (AUTO) 0.01 K/uL (0.00-0.70); EOSINOPHILS % (AUTO) 0.1 % (0.0-8.0); HEMATOCRIT 42.6 % (42-54); IMMATURE GRANULOCYTE ABSOLUTE 0.05 K/uL (0-1); LYMPHOCYTES # (AUTO) 0.8 K/uL (1.0-4.8); LYMPHOCYTES % (AUTO) 8.2 % (21.0-51.0); MEAN CORPUSCULAR HEMOGLOBIN 30.3 pg (27.0-33.0); MEAN CORPUSCULAR HGB CONC 32.9 g/dL (32.0-36.0); MEAN CORPUSCULAR VOLUME 92.2 fL (79-99); MONOCYTES # (AUTO) 1.1 K/uL (0.1-1.0); MONOCYTES % (AUTO) 11.4 % (3.0-13.0); NEUTROPHILS # (AUTO) 7.7 K/uL (1.8-7.7); NEUTROPHILS % (AUTO) 79.7 % (40.0-77.0); PLATELET COUNT (AUTO) 79 K/uL (130-400); RED BLOOD CELL COUNT(AUTO) 4.62 MIL/uL (4.50-6.20); RED CELL DISTRIBUTION WIDTH 14.3 % (11.0-15.5); WHITE BLOOD COUNT (AUTO) 9.6 K/uL (4.8-10.8)
[2024-10-25 14:36] LABS: APPEARANCE,URINE CLEAR (CLEAR); BILIRUBIN,URINE NEGATIVE (NEGATIVE); COLOR,URINE LIGHT-YELLOW (YELLOW); GLUCOSE, URINE (UA) >=1000 mg/dL (NEGATIVE); KETONES,URINE NEGATIVE (NEGATIVE); LEUKOCYTE ESTERASE ,URINE NEGATIVE Leu/uL (NEGATIVE); NITRATE,URINE NEGATIVE (NEGATIVE); PROTEIN,URINE 20 mg/dL (NEGATIVE); UROBILINOGEN,URINE 0.2 mg/dL (0.2-1.0)
[2024-10-25 14:36] LABS: CREATININE 1.3 mg/dL (0.5-1.3); POTASSIUM 4.1 mmol/L (3.5-5.1)
[2024-10-25 14:37] LABS: ADD UA MICROSCOPIC YES
[2024-10-25 14:38] LABS: AMPHET/METH SCREEN,URINE NEGATIVE (NEGATIVE); BARBITURATE SCREEN, URINE NEGATIVE (NEGATIVE); BENZODIAZEPINES SCREEN,URINE NEGATIVE (NEGATIVE); CANNABINOID SCREEN,URINE NEGATIVE (NEGATIVE); COCAINE SCREEN,URINE NEGATIVE (NEGATIVE); OPIATE SCREEN,URINE NEGATIVE (NEGATIVE); PHENCYCLIDINE SCREEN,URINE NEGATIVE (NEGATIVE)
--- NOTE | 2024-10-25 14:43 | HMCIMG ---
CHEST 1VW HISTORY: 50 COMPARISON: 08/29/2003 FINDINGS: A frontal projection of the chest was obtained. No acute pulmonary infiltrates is seen. Poststernotomy changes are seen. The heart is enlarged. Degenerative changes of the thoracolumbar spine are present. Degenerative changes are seen. Pacemaker is seen entering from the left. No evidence of aortic calcification is seen. IMPRESSION: 1. No acute pulmonary infiltrate is seen.
[2024-10-25 15:46] LABS: MUCUS,URINE RARE LPF (None Seen)
--- NOTE | 2024-10-25 16:21 | ERN ---
General Chief Complaint: Generalized Body Aches Stated Complaint: PAIN Time Seen by MD: 13:41 Source: patient History of Present Illness Initial Comments PATIENT IS A 79-YEAR-OLD MALE COMING IN TO BE EVALUATED FOR GENERALIZED BODY ACHES. PATIENT STATES THAT HE HAS BEEN HAVING IN HIS BODY ACHES FOR ABOUT FOUR DAYS. HE ALSO STATES THAT HE HAS BEEN NOT BEEN TAKING HIS MEDICATION PRESCRIBED BY HIS PCP. HE STATES THAT HE RAN OUT OF IT IN HIS PENDING A VISIT WITH A PCPS. SYMPTOMS ARE VAGUE AND STATES THAT HE BELIEVES IT IS RELATED TO NOT TAKING HIS MEDICATION HE DOES NOT KNOW WHAT MEDICATION HE IS TAKING. Allergies: Coded Allergies: Chlorpheniramine Polistirex (Unverified Allergy, Unknown, hives, 06/28/12) Hydrocodone Polistrx (Unverified Allergy, Unknown, hives, 06/28/12) Sulfa (Sulfonamide Antibiotics) (Verified Allergy, Unknown, 08/12/20) ciprofloxacin (Unverified Allergy, Unknown, loss of blood, 06/28/12) ciprofloxacin HCl (Unverified Allergy, Unknown, loss of blood, 06/28/12) fentanyl (Unverified Allergy, Unknown, SHORTNESS OF BREATH, 11/19/16) Home Meds Active Scripts Tobramycin/Dexamethasone (Tobradex St Eye Drops) 0.3 %-0.05 % Drops.susp, 2 DROP OP QID for 7 Days, #1 BOTTLE Prov:ROSALINDA SUAREZ 08/31/23 Reported Medications Metoprolol Succinate (Metoprolol Succinate) 50 Mg Tab.er.24h, 50 MG PO DAILY, TAB 08/30/23 Empagliflozin (Jardiance) 25 Mg Tablet, 25 MG PO DAILY, TAB 08/30/23 Glipizide (Glipizide) 10 Mg Tablet, 10 MG PO DAILY, TAB 08/30/23 Ranolazine (RANEXA) 500 Mg Tab.er.12h, 500 MG PO DAILY, TAB 08/30/23 Levothyroxine Sodium (Levothyroxine) 75 Mcg Capsule, 75 MCG PO DAILY, CAP 08/30/23 Metformin HCl (Metformin HCl) 500 Mg Tablet, 500 MG PO BID, TAB 08/30/23 Citalopram Hydrobromide (Citalopram HBr) 40 Mg Tablet, 40 MG PO DAILY, TAB 08/30/23 Empagliflozin (Jardiance) 25 Mg Tablet, 12.5 MG PO DAILY, TAB 04/24/22 Clopidogrel Bisulfate (Clopidogrel) 75 Mg Tablet, 75 MG PO DAILY, TAB 07/10/21 Methocarbamol (Methocarbamol) 500 Mg Tablet, 500 MG PO DAILY PRN for MUSCLE SPASMS, TAB 07/10/21 Past Medical History Past Medical History: Diabetes-Type II, High Cholesterol, Heart Disease, Hypertension, Renal Disese Medical History Other: GB, Past Surgical History: CABG Surgical History Other: UMBILICAL HERNIA, EYELID SURGERY Social History Social History: Negative, Lives with family ROS Dictation CONSTITUTIONAL: NO CHILLS, NO FEVER, NO WEAKNESS, NO DIAPHORESIS, NO MALAISE. HEAD/FACE: NO SIGNS OF TRAUMA. EENT: NO EYE PAIN, NO BLURRED VISION, NO TEARING, NO DOUBLE VISION, NO EAR PAIN, NO EAR DISCHARGE, NO NOSE PAIN, NO NASAL CONGESTION, NO THROAT PAIN, NO THROAT SWELLING, NO MOUTH PAIN. RESPIRATORY: NO COUGH, NO ORTHOPNEA, NO SOB, NO STRIDOR, NO WHEEZING. CARDIOVASCULAR: NO CHEST PAIN, NO EDEMA, NO PALPITATIONS, NO SYNCOPE. GASTROINTESTINAL/ABDOMINAL: NO ABDOMINAL PAIN, NO CONSTIPATION, NO DIARRHEA, NO NAUSEA, NO VOMITING. GENITOURINARY: NO ABNORMAL DISCHARGE, NO DYSURIA, NO FREQUENT URINATION, NO HEMATURIA. NO COMPLAINTS OF PAIN IN THE GENITALS. MUSCULOSKELETAL: NO BACK PAIN, NO GOUT, NO JOINT PAIN, NO JOINT SWELLING, NO MUSCLE PAIN, NO MUSCLE STIFFNESS, NO NECK PAIN. INTEGUMENTARY: NO CHANGE IN COLOR, NO CHANGE IN HAIR/NAILS, NO DRYNESS, NO LESION, NO LUMPS, NO RASH. NEUROLOGICAL/PSYCH: NO ANXIETY, NOT DEPRESSED, NO EMOTIONAL PROBLEM, NO HEADACHE, NO NUMBNESS, NO PRE-EXISTING DEFICIT, NO HISTORY OF SEIZURES, NO TREMORS, NO WEAKNESS. HEMATOLOGIC/LYMPHATIC: NOT ANEMIC, NO HISTORY OF BLOOD CLOTS, NO APPARENT BLEEDING, NO BRUISING, GLANDS NOT SWOLLEN. ALL SYSTEMS NEGATIVE, EXCEPT NOTED. Physical Exam Physical Exam Dictation VITAL SIGNS: REVIEWED. GENERAL APPEARANCE: ALERT, ORIENTED X3, NO ACUTE DISTRESS, OBESE. HEAD AND FACE: NON-TRAUMATIC. EYES: PERRL, PINK CONJUNCTIVAS, EYELID NO TRAUMA, ANTERIOR CHAMBER CLEAR. EARS: PINNAS INTACT AND NO SIGNS OF TRAUMA OR ERYTHEMA. EAR CANALS CLEAR AND NO DISCHARGE. TMS NO ERYTHEMA. NOSE: NO DISCHARGE, NO BLEEDING. OROPHARYNX: MOUTH NORMAL, TEETH NO CARIES, TONGUE PINK. PHARYNX CLEAR, NO ERYTHEMA. TONSILS NO EXUDATES, NO ABSCESSES NOTED. MUCOUS MEMBRANE MOIST. NECK: SUPPLE, NON-TENDER, NO THYROMEGALY, NO MASSES, NO JVD, NO BRUITS. BREAST: DEFERRED. CHEST: NO TENDERNESS, NO CREPITUS, NO PARADOXICAL MOVEMENT, NO RETRACTIONS. LUNGS: CLEAR, WELL-VENTILATED, SYMMETRIC, NO RALES, NO WHEEZING, NO RHONCHI, NO STRIDOR, GOOD BREATH SOUNDS BILATERALLY. HEART: REGULAR RATE, REGULAR RHYTHM, NO MURMUR, NO GALLOPS. VASCULAR: NO PERIPHERAL EDEMA. ABDOMEN: SOFT, POSITIVE BOWEL SOUNDS, NONDISTENDED, NO GUARDING, NONTENDER, NO REBOUND, NO MASSES NO HEPATOMEGALY, NO SPLENOMEGALY, NO SINGER'S SIGN, NO HERNIAS. RECTAL: DEFERRED. GENITAL: DEFERRED. NEUROLOGICAL: NORMAL SPEECH, GROSS MOTOR FUNCTION INTACT, GROSS SENSORY FUNCTION INTACT. MUSCULOSKELETAL: NECK NONTENDER, FULL RANGE OF MOTION, BACK NONTENDER, FULL RANGE OF MOTION. EXTREMITIES: NONTENDER, FULL RANGE OF MOTION. SKIN: COLOR PINK, DRY, NO TURGOR, NO RASH, NO LACERATIONS, NO ABRASIONS, NO CONTUSIONS. LYMPHATICS: DEFERRED. Results Laboratory and Microbiology Lab and Micro Result Laboratory Tests Test 10/25/24 14:18 10/25/24 14:22 Urine Color LIGHT-YELLOW (YELLOW) Urine Appearance CLEAR (CLEAR) Urine pH 7.0 (5.0-8.0) Urine Specific [place] 1.014 (1.001-1.031) Urine Protein 20 mg/dL (NEGATIVE) H Urine Glucose (UA) >=1000 mg/dL (NEGATIVE) H Urine Ketones NEGATIVE mg/dL (NEGATIVE) Urine Occult Blood +- (TRACE) (NEGATIVE) H Urine Nitrate NEGATIVE (NEGATIVE) Urine Bilirubin NEGATIVE mg/dL (NEGATIVE) Urine Urobilinogen 0.2 mg/dL (0.2-1.0) Urine Leukocyte Esterase NEGATIVE [place]/uL Urine RBC 2-5 /HPF (0-1) H Urine WBC 2-5 /HPF (0-1) H Urine Bacteria None /HPF (None Seen) Urine Opiates Screen NEGATIVE (NEGATIVE) Urine Barbiturates Screen NEGATIVE (NEGATIVE) Urine Phencyclidine Screen NEGATIVE (NEGATIVE) Urine Amphetamines Screen NEGATIVE (NEGATIVE) Urine Benzodiazepines Screen NEGATIVE (NEGATIVE) Urine Cocaine Screen NEGATIVE (NEGATIVE) Urine Marijuana (THC) Screen NEGATIVE (NEGATIVE) White Blood Count 9.6 K/uL (4.8-10.8) Red Blood Count 4.62 MIL/uL (4.50-6.20) Hemoglobin 14.0 g/dL (14.0-18.0) Hematocrit 42.6 % (42-54) Mean Corpuscular Volume 92.2 fL (79-99) Mean Corpuscular Hemoglobin 30.3 pg (27.0-33.0) Mean Corpuscular Hemoglobin Concent 32.9 g/dL (32.0-36.0) Red Cell Distribution Width 14.3 % (11.0-15.5) Platelet Count 79 K/uL (130-400) L Mean Platelet Volume 11.4 fL (7.5-10.5) H Immature Granulocyte % (Auto) 0.5 % (0-1) Neutrophils (%) (Auto) 79.7 % (40.0-77.0) H Lymphocytes (%) (Auto) 8.2 % (21.0-51.0) L Monocytes (%) (Auto) 11.4 % (3.0-13.0) Eosinophils (%) (Auto) 0.1 % (0.0-8.0) Basophils (%) (Auto) 0.1 % (0.0-5.0) Neutrophils # (Auto) 7.7 K/uL (1.8-7.7) Lymphocytes # (Auto) 0.8 K/uL (1.0-4.8) L Monocytes # (Auto) 1.1 K/uL (0.1-1.0) H Eosinophils # (Auto) 0.01 K/uL (0.00-0.70) Basophils # (Auto) 0.01 K/uL (0.00-0.20) Absolute Immature Granulocyte (auto 0.05 K/uL (0-1) Nucleated Red Blood Cells 0.0 % (0.0-0.19) White Cell Morphology Comment See comments Sodium Level 141 mmol/L (136-145) Potassium Level 4.1 mmol/L (3.5-5.1) Chloride Level 105 mmol/L (101-111) Carbon Dioxide Level 23 mmol/L (21-32) Blood Urea Nitrogen 15 mg/dL (7-18) Creatinine 1.3 mg/dL (0.5-1.3) Glomerular Filtration Rate Calc 57 mL/min (>90) Random Glucose 143 mg/dL (70-105) H Total Calcium 9.2 mg/dL (8.5-10.1) Total Creatine Kinase 133 U/L (21-232) # Troponin I High Sensitivity 7 ng/L (4-75) Labs Reviewed?: Yes MDM MDM: DIFFERENTIAL DIAGNOSIS: GENERALIZED BODY ACHES, FIBROMYALGIA, DEHYDRATION, RATIONALE: TESTS CONSIDERED AND ORDERED SECONDARY TO SHARED DECISION MAKING INCLUDE: PREVIOUS OUTSIDE RECORDS REVIEWED: OLD ER VISITS. RISK OF COMPLICATION AND/OR MORBIDITY OR MORTALITY OF PATIENT MANAGEMENT: NONE MEDICATIONS-PER MEDICATION RECONCILIATION PATIENT IS A 79-YEAR-OLD MALE COMING IN TO BE EVALUATED FOR GENERALIZED BODY ACHES. LABORATORY WORKUP DID NOT DISCLOSE ACUTE FINDINGS. PATIENT DOES ATTRIBUTED THESE BODY ACHE PRESENTATIONS TO NOT TAKING HIS MEDICATION. HE DID NOT NOT DISCLOSE THE MEDICATION HE IS TAKING. I ADVISED HIM ON THE LABORATORY WORKUP AND FINDINGS HE STATES HE FEELS BETTER AND WILL BE DISCHARGED IN STABLE CONDITION. I DID ADVISED HIM APPROPRIATE FOLLOW UP WITH PCP FOR LONG-TERM MEDICATION USAGE FOR HIS CHRONIC CONDITIONS. ED Course Orders Procedure Category Date Status Time Cbc With Differential LAB 10/25/24 Complete 13:55 Chest 1vw RAD 10/25/24 Resulted 13:55 12 Lead Ekg Tracing- EKG 10/25/24 Complete Technical 13:55 Creatine Kinase, Total LAB 10/25/24 Complete 13:55 Troponin I High LAB 10/25/24 Complete Sensitivity 13:55 Urinalysis Profile LAB 10/25/24 Complete 13:55 Basic Metabolic Panel LAB 10/25/24 Complete 13:55 Drug Screen Urine LAB 10/25/24 Complete 14:03 Vital Signs Date Time Temp Pulse Resp B/P (MAP) Pulse Ox O2 Delivery O2 Flow Rate FiO2 10/25/24 15:33 98.2 69 20 161/77 95 Room Air* 0 21 10/25/24 14:25 98.1 65 17 132/81 Room Air* 0 21 10/25/24 13:51 99.3 70 18 151/75 97 Room Air 0 DX & DISP Disposition: Discharge Departure Impression: Primary Impression: Dehydration Condition: Stable Additional Instructions: FOLLOW-UP WITH PRIMARY CARE PROVIDER IN 1 TO 2 DAYS. TAKE MEDICATIONS DIRECTED HERE IN THE EMERGENCY ROOM. OKAY TO CONTINUE HOME MEDICATIONS UNLESS OTHERWISE DISCUSSED DURING YOUR VISIT IN THE EMERGENCY ROOM TODAY. RETURN TO YOUR NEAREST EMERGENCY ROOM IF SYMPTOMS WORSEN OR IF THERE IS NO IMPROVEMENT. CALL 911 IF YOU NEED IMMEDIATE ASSISTANCE. TAKE TYLENOL [id number] NEEDED AND IF NO CONTRAINDICATIONS ARE PRESENT. INCREASE ORAL HYDRATION. A WOUND CULTURE OR URINE CULTURE WAS ORDERED HERE IN THE EMERGENCY ROOM DEPARTMENT PLEASE FOLLOW-UP WITH PRIMARY CARE PROVIDER AND ADVISE THEM TO GET REPEAT PORTS FROM OUR FACILITY. IF YOU HAD ANY VIRGILIO WRAP/SPLINTS THAT WERE APPLIED HERE, PLEASE DO NOT REMOVE THEM UNTIL YOU SEE YOUR PRIMARY CARE OR SPECIALTY. REFERRALS: Referrals: SELF,REFERRAL (PCP) SUMMER COX MD Time of Disposition: 16:20 MICKI BYRD MD October 25, 2024 16:21
[2024-10-25 16:46] VITALS: BP 148/73; PULSE 68; RESP 18; TEMP 98.2; O2SAT 99
--- NOTE | 2024-10-25 17:02 | NUR ---
PT DISCHARGED WITH SON AT BEDSIDE. DISCHARGE PAPERWORK GIVEN AND EDUCATION ON DEHYDRATION GIVEN. PT AGREED AND UNDERSTOOD.
== END 2024-10-25 18:40 | disposition home or self-care (01) ==
LOC: EDH 13:39
DX: E86.0 Dehydration (principal); E11.9 Type 2 diabetes mellitus without complications; E78.00 Pure hypercholesterolemia, unspecified; I10 Essential (primary) hypertension; Z79.02 Long term (current) use of antithrombotics/antiplatelets; Z79.84 Long term (current) use of oral hypoglycemic drugs; Z79.890 Hormone replacement therapy; Z79.899 Other long term (current) drug therapy; Z88.1 Allergy status to other antibiotic agents; Z88.2 Allergy status to sulfonamides; Z88.5 Allergy status to narcotic agent; Z95.1 Presence of aortocoronary bypass graft
CPT/HCPCS: 36415; 71045; 80048; 80305; 81001; 82550; 84484; 85025; 93005; 99285